=== PATIENT | female | born 1950 | race African-American/Black ===

== ENCOUNTER 2018-10-15 06:07 | Inpatient (IN) | payer OTHER ==
[2018-10-11 20:35] VITALS: BMI 31.8
[2018-10-15] MEDS ORDERED: THROMBIN (BOVINE) 5,000 UNIT VIAL TP ONE ×3 (07:24→15:29)
[2018-10-15] MEDS ORDERED: HEPARIN NA (PORCINE) 5,000 UNITS/ML 1ML VIAL ONE (07:24)
[2018-10-15] MEDS ORDERED: BUPIVACAINE HCL/PF 0.25% (2.5MG/ML) 10 ML VIAL ONE (07:24)
[2018-10-15] MEDS ORDERED: MIDAZOLAM HCL 2 MG/2 ML SINGLE DOSE VIAL ONE (08:17)
[2018-10-15] MEDS ORDERED: PROPOFOL 20 ML ONE ×16 (08:18→16:36)
[2018-10-15] MEDS ORDERED: DESFLURANE GAS 240 ML BOTTLE IH ONE (08:20)
[2018-10-15] MEDS ORDERED: ceFAZolin SODIUM 1 GM VIAL IVPB ONE ×2 (08:30→14:29)
[2018-10-15] MEDS ORDERED: VANCOMYCIN 1,000 MG VIAL (RESTRICTED TO ID ONLY) IVPB ONE ×2 (08:30→08:50)
[2018-10-15] MEDS ORDERED: ROCURONIUM BROMIDE 50 MG/5 ML VIAL ONE ×2 (08:38→10:27)
[2018-10-15] MEDS ORDERED: SUCCINYLCHOLINE CHLORIDE 200 MG/10 ML VIAL ONE (08:39)
[2018-10-15] MEDS ORDERED: fentaNYL CITRATE 250 MCG/5 ML VIAL ONE ×3 (09:06→14:11)
[2018-10-15] MEDS ORDERED: BENZOIN TINCTURE SWABSTICK TP ONE ×2 (09:15→19:20)
[2018-10-15] MEDS ORDERED: ONDANSETRON 4 MG/2 ML VIAL ONE ×2 (10:00→16:14)
[2018-10-15] MEDS ORDERED: DEXAMETHASONE SOD PHOSPHATE 4 MG/1 ML VIAL ONE ×2 (10:00→11:15)
[2018-10-15] MEDS ORDERED: VANCOMYCIN 1,000 MG VIAL (RESTRICTED TO ID ONLY) ONE (10:00)
[2018-10-15] MEDS ORDERED: ceFAZolin SODIUM 1 GM VIAL ONE ×3 (10:00→16:54)
[2018-10-15] MEDS ORDERED: TRANEXAMIC ACID 1000 MG/10 ML VIAL ONE (10:12)
[2018-10-15] MEDS ORDERED: GELATIN, ABSORBABLE 100 EACH SPONGE TP ONE (10:33)
[2018-10-15] MEDS ORDERED: BUPIVACAINE HCL/PF 0.25% (2.5MG/ML) 10 ML VIAL IJ ONE ×2 (11:01→14:31)
[2018-10-15] MEDS ORDERED: BUPIVACAINE LIPOSOME/PF (EXPAREL) 266 MG/20 ML VIAL NR ONE ×3 (11:01→14:31)
[2018-10-15] MEDS ORDERED: CALCIUM CHLORIDE 1 GM/10 ML *DISP.SYRIN ONE ×2 (11:04→15:30)
[2018-10-15] MEDS ORDERED: DEXMEDETOMIDINE HCL 200 MCG/2 ML ML IVPB ONE (11:20)
[2018-10-15] MEDS ORDERED: SODIUM CHLORIDE 0.9% P/F 10 ML VIAL IJ ONE (11:27)
[2018-10-15] MEDS ORDERED: NEOSTIGMINE METHYLSULFATE 0.5 MG/1 ML - 10 ML MDV ONE (11:44)
[2018-10-15] MEDS ORDERED: GLYCOPYRROLATE 0.2 MG/1 ML VIAL ONE (11:44)
[2018-10-15 13:52] LABS: ARTERIAL BLD GAS O2 SATURATION 99.1 % (90-98.9); ARTERIAL BLOOD GAS BASE EXCESS 0.2 meq/l (-2-2); ARTERIAL BLOOD GAS pH 7.41 (7.35-7.45)
[2018-10-15 13:56] LABS: ALLENS TEST POSITIVE
[2018-10-15] MEDS ORDERED: PHENYLEPHRINE HCL 10 MG/1 ML SINGLE DOSE VIAL ONE (14:06)
[2018-10-15] MEDS ORDERED: ONDANSETRON 4 MG/2 ML VIAL IVPUSH PRN ×3 (14:57→19:56)
[2018-10-15] MEDS ORDERED: LACTATED RINGERS SOLUTION 1,000 ML IV SCH ×2 (15:00→20:00)
[2018-10-15 17:11] LABS: BASO % 0.2 % (0-2.0); EOS % 0.1 % (0-4.5); HEMATOCRIT 29.6 % (32.4-45.2); HEMOGLOBIN 10.1 GM/dL (10.7-15.3); LYMPH % 9.7 % (8-40); MCH 30.5 pg (25.7-33.7); MEAN CELL VOLUME 89.6 fl (80-96); MEAN PLT VOLUME 9.4 fl (7.5-11.1); MONO % 2.3 % (3.8-10.2); NEUT % 87.7 % (42.8-82.8); PLATELET COUNT 218 K/MM3 (134-434); RBC 3.31 M/mm3 (3.60-5.2); RDW 17.1 % (11.6-15.6); WHITE BLOOD COUNT 9.3 K/mm3 (4.0-10.0)
--- NOTE | 2018-10-15 19:47 | PN ---
Progress Note (short form) - Note Progress Note: 68F POD #0 s/p: 1. L1, L2, L3, L4, L5, S1 laminectomies 2. T6, T7, T8, T9, T10, T11, T12, L1, L2, L3, L4, L5, S1 osteotomies ( facetectomies) 3. L1-L2, L2-L3, L3-L4 Apstor Dean Osteotomies 4. T6-S1 posterior instrumentation 5. T6-S1 posterolateral arthrodesis 6. Durotomy repair 7. Bone allograft 8. Bone autograft 9. Bone marrow aspiration 10. Complex wound closure (>45cm) -Pain control: NO NSAID's. -DVT PPx: -Mechanical only: JAIDEN's, SCD's. -Chemical: None. -Incentive spirometry. -PT/OT/Rehab, OOB. -WBAT B/L LE. -NPO until flatus. -Monitor drain output. -Bhakta care; d/c when ambulating. -Post-op Ancef x 2 doses. -No bending, lifting, or twisting for 9-12 months. -Care per ICU & medical hospitalist teams. -Will follow. Andre Manjarrez MD (Orthopaedic Surgery).
[2018-10-15] MEDS ORDERED: PROMETHAZINE HCL 25 MG/1 ML VIAL IVPUSH PRN (19:52)
--- NOTE | 2018-10-15 19:53 | OP ---
Operative Note - Note: Operative Date: 10/15/18 Pre-Operative Diagnosis: 1. 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 2. 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 3. L3-L4 spondylolisthesis ( anterolisthesis). 4. Thoracolumbar scoliosis. 5. Thoracolumbar kyphosis. 6. Sagittal vertical malalignment/imbalance. 7. Neurological decline/weakness. 8. Neurogenic bladder. 9. Durotomy Operation: 1. L1, L2, L3, L4, L5, S1 laminectomies. 2. T6, T7, T8, T9, T10, T11 , T12, L1, L2, L3, L4, L5, S1 osteotomies (facetectomies). 3. L1-L2, L2-L3, L3- L4 Pastor Dean Osteotomies. 4. T6-S1 posterior instrumentation. 5. T6-S1 posterolateral arthrodesis. 6. Durotomy repair. 7. Bone allograft. 8. Bone autograft. 9. Bone marrow aspiration. 10. Complex wound closure (>45cm) Post-Operative Diagnosis: Same as Pre-op Surgeon: Andre Manjarrez Truck Hop: Flynn Manjarrez Anesthesiologist/AQUATIC ECOLOGIST: Niurka Cantu Anesthesia: General Estimated Blood Loss (mls): 2,000 Drains & Tubes with Location: 1 x superficial HemoVac Blood Volume Replaced (mls): 1,900 (4U PRBC (350cc) + 500cc cell saver) Fluid Volume Replaced (mls): 7,000 (Crystalloid) Operative Report Dictated: Yes
[2018-10-15] MEDS ORDERED: HYDROmorphone *PCA* 10MG/50ML DISP.SYRIN PCA SCH (20:00)
[2018-10-15] MEDS ORDERED: HYDROmorphone *PCA* 10MG/50ML DISP.SYRIN PCA ONE (20:03)
[2018-10-15] MEDS ORDERED: ACETAMINOPHEN INJECTION 0 ML IVPB ONE (20:24)
[2018-10-15] MEDS: LACTATED RINGERS SOLUTION 1,000 ML IV SCH (20:30)
[2018-10-15] MEDS: HYDROmorphone *PCA* 10MG/50ML DISP.SYRIN PCA SCH (20:40)
[2018-10-15] MEDS: ACETAMINOPHEN 1000 MG/100 ML VIAL (NON FORMULARY) IVPB SCH (20:45)
[2018-10-15] MEDS ORDERED: LORazepam 2 MG/ML SDV VIAL ONE (21:22)
[2018-10-15] MEDS ORDERED: LORazepam 2 MG/ML SDV VIAL IVPUSH ONE (21:42)
--- NOTE | 2018-10-15 23:53 | CONSULT ---
Consult Consult Specialty:: ICU Referred by:: Josseline Reason for Consultation:: Post-op - History of Present Illness Chief Complaint: Post-op History of Present Illness: 68F with history of Right breast Ca, neurogenci bladder, glaucoma, spinal stenosis with neurogenic claudication, scoliosis, lower extremity radiculopathy , is s/p L1, L2, L3, L4, L5, S1 laminectomies, T6, T7, T8, T9, T10, T11, T12, L1, L2, L3, L4, L5, S1 osteotomies (facetectomies), L1-L2, L2-L3, L3-L4 Pastor Dean Osteotomies, T6-S1 posterior instrumentation, T6-S1 posterolateral arthrodesis, Durotomy repair, Bone allograft, Bone autograft, Bone marrow aspiration, and Complex wound closure. Patient tolerated the procedure well and is feeling well. She is still lethargic and tired appearing. She denies nausea, vomiting, fever, chills, chest pain, or shortness of breath. pain is well controlled on Dilaudid ETHICAL HACKER. Patient has 2 liters bloos loss in OR. Replaced with 7 liters of cystalloid and 4 units PRBCs (350ml each) plus 500ml cell saver - History Source History Provided By: Medical Record Limitations to Obtaining History: Other (patient lethargic likely from anesthesia) - Past Medical History Heme/Onc: Yes: Cancer (right breast) Additional Medical History: Neurogenic bladder. spinal stenosis. glaucoma - Alcohol/Substance Use Hx Alcohol Use: Yes (socially) - Smoking History Smoking history: Former smoker Have you smoked in the past 12 months: No If you are a former smoker, when did you quit?: quit 47 years ago Home Medications - Allergies Allergies/Adverse Reactions: Allergies Allergy/AdvReac Type Severity Reaction Status Date / Time No Known Allergies Allergy Verified 10/11/18 20:22 - Home Medications Home Medications: Ambulatory Orders Gabapentin [Neurontin -] 300 mg PO Q12H 10/11/18 Oxycodone HCl/Acetaminophen [Oxycodone-Acetaminophen 10-325] 1 each PO Q12H PRN 10/11/18 Timolol [Betimol] 1 ml OU DAILY 10/11/18 Travoprost [Travatan Z] 1 ml OP DAILY 10/11/18 Family Disease History - Family Disease History Family History: Unable to Obtain (Patient still lethargic post op) Review of Systems Findings/Remarks: Was able to do partial ROS. Patient very sleepy - Review of Systems Constitutional: reports: No Symptoms HENT: reports: No Symptoms Cardiovascular: reports: No Symptoms Respiratory: reports: No Symptoms Gastrointestinal: reports: No Symptoms Genitourinary: reports: No Symptoms Musculoskeletal: reports: Back Pain Physical Exam Vital Signs: Vital Signs Temperature 99.6 F 10/15/18 19:46 Pulse Rate 83 10/15/18 23:15 Respiratory Rate 16 10/15/18 23:15 Blood Pressure 120/78 10/15/18 23:15 O2 Sat by Pulse Oximetry (%) 100 10/15/18 23:15 Constitutional: Yes: Well Nourished, Obese, Other (lethargic) Eyes: Yes: Conjunctiva Clear HENT: Yes: Atraumatic, Normocephalic Neck: Yes: Supple Cardiovascular: Yes: Regular Rate and Rhythm Respiratory: Yes: Regular, CTA Bilaterally. No: Accessory Muscle Use Gastrointestinal: Yes: Soft, Hypoactive Bowel Sounds. No: Tenderness Extremities: Yes: Other (sensation intact in all 4 extremities. complete neurological assessment of all extremities not able to be done as patient is sleepy/lethargic. is able to move all extremities) Edema: Yes Edema: RLE: Trace Wound/Incision: Yes: Other (Dressing along back C/D/I) Neurological: Yes: Lethargy Labs: CBC, BMP 10/15/18 16:30 Assessment/Plan 68F with multi-level lumbar intervertebral disc disorder with bilateral lower extremity radiculopathy and spinal stenosis presents s/p L1, L2, L3, L4, L5, S1 laminectomies, T6, T7, T8, T9, T10, T11, T12, L1, L2, L3, L4, L5, S1 osteotomies (facetectomies), L1-L2, L2-L3, L3-L4 Pastor Dean Osteotomies, T6- S1 posterior instrumentation, T6-S1 posterolateral arthrodesis, Durotomy repair , Bone allograft, Bone autograft, Bone marrow aspiration, and Complex wound closure Problem List: multi-level lumbar intervertebral disc disorder with bilateral lower extremity radiculopathy 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 Monitor in PACU for now trend CBC given 2 liter blood loss transfuse PRN pain control with ETHICAL HACKER bilateral lower extremity non weight bearing lay flat for 72 hours given intra-op durotomy and primary repair hemovac drain to suction on eye drops for glaucoma O2 PRN hold off on PT for now Incentive spirometry No NSAIDs per Dr. Manjarrez perioperative ancef sharp until ambulating NPO until patient has flatus No bending, lifting, or twisting for 9-12 months SCDs for DVT PPx-no chemical PPx ICU care CCTime 45min
[2018-10-16] MEDS ORDERED: ceFAZolin SODIUM 1 GM VIAL ONE ×2 (00:10→09:03)
[2018-10-16] MEDS ORDERED: ceFAZolin 2 GRAM PREMIX BAG IVPB SCH (00:30)
[2018-10-16] MEDS ORDERED: CEFAZOLIN 2 GM/D5W 2 GM/50 ML ML IVPB SCH (00:30)
[2018-10-16] MEDS ORDERED: ACETAMINOPHEN INJECTION 100 ML IVPB ONE ×2 (03:58→11:25)
[2018-10-16] MEDS: ACETAMINOPHEN 1000 MG/100 ML VIAL (NON FORMULARY) IVPB SCH ×3 (04:00→21:57)
[2018-10-16 07:05] LABS: HEMATOCRIT 33.8 % (32.4-45.2); HEMOGLOBIN 11.1 GM/dL (10.7-15.3); MCH 29.2 pg (25.7-33.7); MCHC 32.9 g/dl (32.0-36.0); MEAN CELL VOLUME 88.9 fl (80-96); MEAN PLT VOLUME 9.1 fl (7.5-11.1); PLATELET COUNT 171 K/MM3 (134-434); RDW 17.2 % (11.6-15.6); WHITE BLOOD COUNT 12.3 K/mm3 (4.0-10.0)
--- NOTE | 2018-10-16 08:09 | PN ---
Progress Note (short form) - Note Progress Note: Anesthesia POD#1 S/PT6-S1 Posterior Decompression with Fusion under GA and IV STRAP BUCKLER MACHINE Stable after the surgery and 4 units of PRBC,no N/V. Pain is under control. Awaiting bed in the ICU. A/P Continue the STRAP BUCKLER MACHINE for today. Delfina Freed MD.
[2018-10-16 08:10] LABS: ANION GAP 11 MMOL/L (8-16); BLOOD UREA NITROGEN 20 mg/dL (7-18); CALCIUM 7.7 mg/dL (8.5-10.1); CHLORIDE 111 mmol/L (98-107); CO2 20 mmol/L (21-32); CREATININE 0.8 mg/dL (0.55-1.3); GLUCOSE,RANDOM 124 mg/dL (74-106); MAGNESIUM 1.7 mg/dL (1.8-2.4); PHOSPHOROUS 4.5 mg/dL (2.5-4.9); POTASSIUM 4.8 mmol/L (3.5-5.1); SODIUM 142 mmol/L (136-145)
--- NOTE | 2018-10-16 12:41 | OP ---
DATE OF OPERATION: 10/15/2018 SURGEON: Andre Manjarrez MD SCRIPT WRITER SURGEON: Flynn Manjarrez MD PREOPERATIVE DIAGNOSIS: Degenerative lumbar scoliosis, 48 degrees, with associated segmental instability and spinal stenosis from L1 to S1, and L2-L3 grade 2 spondylolisthesis. POSTOPERATIVE DIAGNOSIS: Degenerative lumbar scoliosis, 48 degrees, with associated segmental instability and spinal stenosis from L1 to S1, and L2-L3 grade 2 spondylolisthesis. OPERATION PERFORMED: 1. Laminectomy with undercutting facetectomy L1 to S1. 2. Pastor-Tyler osteotomies at L1-L2, L2-L3, L3-L4. 3. Incidental durotomy and repair. 4. Transpedicular instrumentation thoracolumbar spine T6 to S1. 5. Posterolateral arthrodesis T6 to S1. 6. Autologous bone graft and allograft. 7. Bone marrow aspirate concentrate. 8. Use of biplane fluoroscopy and intraoperative neuromonitoring. 9. Complex wound closure, 45 cm. ANESTHESIA: General. ANTIBIOTICS GIVEN: Kefzol 2 g and vancomycin 1 g given preoperatively. Kefzol 1 g given at the end of the decompression and laminectomy, and Kefzol 1 g given at the end of instrumentation. ESTIMATED BLOOD LOSS: Approximately 2 L. BLOOD PRODUCTS GIVEN: Including 4 units of blood and 500 mL of CellSaver. FLUIDS: Crystalloid 7 L. Blood pressure was maintained well throughout the procedure and no neuromonitoring abnormalities throughout the procedure. DESCRIPTION OF PROCEDURE: The patient was correctly identified and brought to the operating room. A time-out was called. Imaging was available for intraoperative evaluation. The patient was sat up on the [place] stable. All bony prominences were padded appropriately. The patient was operated on at 10 degrees of head elevation for optic vein blood flow reasons. A midline incision was utilized, extending from T4 to S1. Subperiosteal dissection performed throughout, exposing the spinous processes, laminae, facet joints and the transverse processes of the thoracic spine. 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 The right side was normal. The scoliosis was readily appreciated. A very difficult multilevel laminectomy was performed, with undercutting facetectomy. This necessitated use of Kerrison up-cuts and Lexsell rongeurs of various sizes. We used sharp osteotomes. We performed osteotomies with osteotomes, imploding the bone inwards. The pars interarticularis as well as the inferior facets were removed. The prominent superior facet is resected, thus completing a full superior facetectomy from L1 to S1, both left and right-hand sides. An incidental durotomy was noted at the level of approximately L2-L3. This was repaired with 4-0 Nurolon. This was a watertight seal. Surgicel combined with fibrin glue was laid over. This sealed it completely. Repeated sequential Valsalva maneuvers revealed that this was sealed once the repair had been completed. The dura appeared normal. Although, once it had been decompressed, because of the CSF leakage, it plumped up and filled up reasonably well. At the end of the procedure the dura appeared healthy and normal. No neuromonitoring abnormalities occurred. Once this had been performed, thoracic facetectomies were performed. These were Dale facetectomies at each level from T6 all the way to T12, both left and right-hand sides. These facetectomies enabled entry points for the pedicle screws for the thoracic screws, which all measured 14 x 6 mm. They were inserted using a drill. Each thoracic pedicle was palpated with a ball-tipped feeler and found to be in the confines of healthy bone throughout, and the screws seated with no difficulties or problems. The lumbar spine, where the scoliosis was, proved to be far more difficult. The pedicle screws from L1 to S1 were performed seated using anatomical guidelines and lateral fluoroscopic x-ray. We visualized the pedicles via the vertebral canal to help facilitate accurate screw placement, and this turned out well, as neuromonitoring revealed all screws to be well above 20 milliamps for each screw accordingly. The rods were then contoured to the screw heads, fixed to the screws, tightened with the appropriate cap devices, and tightened finally with a torque device. One crosslink applied. [place] bone grafting of the intertransverse plane extending from T6 right down to the ala of the sacrum was performed. It must be noted that the initial part of the dissection freed all soft tissues off the transverse processes. The area was packed with sponges. At the time of bone grafting, the sponges were removed. Sponge count was correct. The bone was packed into the intertransverse plane appropriately, ensuring that there was an extensive amount of bone graft at the lumbosacral junction. At the end of this, the wound was closed. Prior to closure, it must be noted that the retractors were released every 1/2 hour. The muscle was gently massaged. At the end of the procedure, appropriate fibrillar and devascularized muscle was resected down to normal healthy muscle as routinely performed. Closure was as follows: Erector spinae muscles 1 Vicryl, fascia 1 Vicryl, subcutaneous 1 and 2-0 Vicryl, skin 3-0 Monocryl with Steri-Strips. This completed a 4-layer closure, in keeping with a complex wound closure for greater than 45 cm. OVERALL COMMENTS: This was a full house of spine pathology, namely stenosis, scoliosis, vertebral canal malalignment by anterolisthesis and associated segmental instability. All that was aimed at was achieved well except a very difficult patient and operation. Average in my hands is anything from 4 to 6 hours. This operation took us 10 hours, indicating the difficulty of particularly the decompression and the freeing of the theca. The patient will be nursed in the ICU postoperatively. For drainage, we placed a 1/8th inch Hemovac in the subcutaneous field. MD BLANE Rodriguez/[id number]
[2018-10-16] MEDS: TIMOLOL 0.5% OPHTHALMIC SOL 5 ML BOTTLE OU SCH (15:42)
--- NOTE | 2018-10-16 18:11 | PN ---
Physical Exam: SUBJECTIVE: Patient seen and examined. She is s/p T6- S1 decompression with fusion under general anesthesia. Her pain is well controlled with dilaudid COMMODITY TRADER. She has no passed flatus and remains NPO. OBJECTIVE: Vital Signs Period Temp Pulse Resp BP Sys/Cisneros Pulse Ox Last 24 Hr 97.7 F-99.6 F 74-90 10-27 100-155/50-92 91-100 GENERAL: The patient is awake, alert, and fully oriented, in no acute distress. HEAD: Normal with no signs of trauma. EYES: PERRL, extraocular movements intact, sclera anicteric, conjunctiva clear. ENT: nares patent, oropharynx clear without exudates, moist mucous membranes. NECK: Trachea midline, full range of motion, supple. LUNGS: Breath sounds equal, clear to auscultation bilaterally, no wheezes, no crackles, no accessory muscle use. HEART: Regular rate and rhythm, S1, S2 without murmur, rub or gallop. ABDOMEN: Soft, nontender, nondistended, hyperactive bowel sounds, no guarding EXTREMITIES: 2+ pulses, warm, well-perfused, no edema. SCDs in place. NEUROLOGICAL: Normal speech, PERRL, normal ROM b/l UEs PSYCH: Normal mood, normal affect. SKIN: Warm, dry, normal turgor, no rashes or lesions noted Laboratory Results - last 24 hr 10/16/18 10/16/18 06:35 06:35 WBC 12.3 H RBC 3.80 Hgb 11.1 Hct 33.8 MCV 88.9 MCH 29.2 MCHC 32.9 RDW 17.2 H Plt Count 171 D MPV 9.1 Sodium 142 Potassium 4.8 Chloride 111 H Carbon Dioxide 20 L Anion Gap 11 BUN 20 H Creatinine 0.8 Creat Clearance w eGFR > 60 Random Glucose 124 H Calcium 7.7 L Phosphorus 4.5 Magnesium 1.7 L Active Medications Generic Name Dose Route Start Last Admin Trade Name Freq PRN Reason Stop Dose Admin Acetaminophen 1,000 mg 10/15/18 20:00 10/16/18 11:34 Ofirmev Injection - IVPB 10/17/18 12:01 1,000 mg Q8H LAURA Administration Fentanyl 50 mcg 10/15/18 14:57 Sublimaze Injection - IVPUSH [id number] PRN PAIN-PACU ORDER X 4 DOSES ONLY Hydromorphone HCl 10 mg 10/15/18 21:15 10/15/18 20:40 Dilaudid Analysis Lead - COMMODITY TRADER 10/18/18 19:53 10 mg COMMODITY TRADER LAURA Administration Protocol Lactated Ringer's 1,000 mls @ 100 mls/hr 10/15/18 20:00 10/15/18 20:30 Lactated Ringers Solution IV 500 mls ASDIR LAURA Administration Latanoprost 1 drop 10/16/18 22:00 Xalatan 0.005% Eye Drops - OU HS LAURA Ondansetron HCl 4 mg 10/15/18 19:56 Zofran Injection IVPUSH Q6H PRN NAUSEA AND/OR VOMITING Timolol Maleate 1 drop 10/16/18 10:00 10/16/18 15:42 Timoptic 0.5% OU Not Given DAILY LAURA ASSESSMENT/PLAN: spinal stenosis s/p T6-S1 decompression -continue pain management with dilaudid COMMODITY TRADER -Bed rest x 72hrs -SCDs -ICU care post op -rest of care as per ortho recommendations Visit type - Emergency Visit Emergency Visit: No - New Patient This patient is new to me today: Yes Date on this admission: 10/16/18 - Critical Care Critical Care patient: Yes Total Critical Care Time (in minutes): 30 Critical Care Statement: The care of this patient involved high complexity decision making to prevent further life threatening deterioration of the patient 's condition and/or to evaluate & treat vital organ system(s) failure or risk of failure.
[2018-10-16] MEDS: LACTATED RINGERS SOLUTION 1,000 ML IV SCH (20:00)
[2018-10-16] MEDS ORDERED: PT OWN MED DRAWER 7, Y5N ONE (21:47)
[2018-10-16] MEDS ORDERED: LATANOPROST 0.005% OPHTH SOLN 2.5ML BOTTLE OU SCH (22:00)
[2018-10-16] MEDS: HYDROmorphone *PCA* 10MG/50ML DISP.SYRIN PCA SCH (23:25)
[2018-10-17] MEDS: HYDROmorphone *PCA* 10MG/50ML DISP.SYRIN PCA SCH ×3 (02:23→21:00)
[2018-10-17] MEDS: ACETAMINOPHEN 1000 MG/100 ML VIAL (NON FORMULARY) IVPB SCH (04:00)
[2018-10-17] MEDS ORDERED: PT OWN MED DRAWER 7, Y5N ONE (07:50)
[2018-10-17] MEDS ORDERED: MAGNESIUM SULF 50% (8.12 MEQ/2 ML-1 GM VIAL) IVPB ONE (08:49)
[2018-10-17] MEDS: TIMOLOL 0.5% OPHTHALMIC SOL 5 ML BOTTLE OU SCH (10:08)
[2018-10-17 10:58] LABS: ALBUMIN 1.9 g/dl (3.4-5.0); ALK PHOS 51 U/L (45-117); ANION GAP 7 MMOL/L (8-16); BILIRUBIN,TOTAL 0.3 mg/dL (0.2-1); BLOOD UREA NITROGEN 21 mg/dL (7-18); CALCIUM 7.9 mg/dL (8.5-10.1); CHLORIDE 109 mmol/L (98-107); CO2 25 mmol/L (21-32); CREATININE 0.5 mg/dL (0.55-1.3); GLUCOSE,RANDOM 97 mg/dL (74-106); SGOT/AST 52 U/L (15-37); SGPT/ALT 24 U/L (13-61); SODIUM 142 mmol/L (136-145); TOT PROT 4.4 g/dl (6.4-8.2)
--- NOTE | 2018-10-17 12:59 | PN ---
Physical Exam: SUBJECTIVE: Patient seen and examined in the ICU. pain ctl w/ CUSTOMER SERVICE VOICE. no flatus yet , remains NPO. denies cp, sob, neuro deficits/numbness tingling. OBJECTIVE: Vital Signs Period Temp Pulse Resp BP Sys/Cisneros Pulse Ox Last 24 Hr 98 F-99.5 F 76-96 10-18 106-140/56-74 100-100 GENERAL: AOX3 NAD HEENT: NCAT, extraocular movements intact, sclera anicteric, conjunctiva clear. No ptosis. MMM NECK: Trachea midline, full range of motion, supple. LUNGS: CTAB HEART: RRR, S1, S2 without murmur, rub or gallop. ABDOMEN: Soft, NTND normoactive bowel sounds, no guarding, no rebound, EXTREMITIES: 2+ pulses, warm, well-perfused, no edema. NEUROLOGICAL: Cranial nerves II through XII grossly intact. Normal speech, gait not observed. chronic decreased sensation in L LE PSYCH: Normal mood, normal affect. SKIN: Warm, dry, normal turgor, no rashes or lesions noted Laboratory Results - last 24 hr 10/17/18 09:15 Sodium 142 Potassium 4.0 Chloride 109 H Carbon Dioxide 25 Anion Gap 7 L BUN 21 H Creatinine 0.5 L Creat Clearance w eGFR > 60 Random Glucose 97 Calcium 7.9 L Total Bilirubin 0.3 AST 52 H ALT 24 Alkaline Phosphatase 51 Total Protein 4.4 L Albumin 1.9 L Active Medications Generic Name Dose Route Start Last Admin Trade Name Freq PRN Reason Stop Dose Admin Fentanyl 50 mcg 10/15/18 14:57 Sublimaze Injection - IVPUSH [id number] PRN PAIN-PACU ORDER X 4 DOSES ONLY Hydromorphone HCl 10 mg 10/15/18 21:15 10/17/18 02:23 Dilaudid Grader Marker - CUSTOMER SERVICE VOICE 10/18/18 19:53 0.5 mg CUSTOMER SERVICE VOICE LAURA Administration Protocol Lactated Ringer's 1,000 mls @ 100 mls/hr 10/15/18 20:00 10/16/18 20:00 Lactated Ringers Solution IV 100 mls/hr ASDIR LAURA Administration Ondansetron HCl 4 mg 10/15/18 19:56 Zofran Injection IVPUSH Q6H PRN NAUSEA AND/OR VOMITING ASSESSMENT/PLAN: 68F PMH Right breast Ca, neurogenic bladder, glaucoma, scoliosis, with multi- level lumbar intervertebral disc disorder with bilateral lower extremity radiculopathy and spinal stenosis presents POD2 s/p L1, L2, L3, L4, L5, S1 laminectomies, T6, T7, T8, T9, T10, T11, T12, L1, L2, L3, L4, L5, S1 osteotomies (facetectomies), L1-L2, L2-L3, L3-L4 Pastor Dean Osteotomies, T6- S1 posterior instrumentation, T6-S1 posterolateral arthrodesis, Durotomy repair , Bone allograft, Bone autograft, Bone marrow aspiration, and Complex wound closure Problem List: multi-level lumbar intervertebral disc disorder with bilateral lower extremity radiculopathy 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 has chronic decreased sensation in L LE bilateral lower extremity non weight bearing lay flat for 72 hours given intra-op durotomy and primary repair hemovac drain to suction on home meds eye drops for glaucoma Monitor drain output. s/p Post-op Ancef x 2 doses. Cardiac/pulm/heme/renal/GI maintain MAP >65 cardiac monitoring monitor H/H transfuse PRN pain control with CUSTOMER SERVICE VOICE O2 PRN hold off on PT for now Incentive spirometry No NSAIDs per Dr. Josseline sharp until ambulating NPO until patient has flatus zofran for nausea No bending, lifting, or twisting for 9-12 months FEN LR 100cc replete prn NPO until flatus ppx SCDs for DVT PPx- no chemical PPx Dispo ICU monitoring POD 2 Visit type - Emergency Visit Emergency Visit: Yes ED Registration Date: 10/15/18 Care time: The patient presented to the Emergency Department on the above date and was hospitalized for further evaluation of their emergent condition. - New Patient This patient is new to me today: Yes Date on this admission: 10/17/18 - Critical Care Critical Care patient: Yes Total Critical Care Time (in minutes): 36 Critical Care Statement: The care of this patient involved high complexity decision making to prevent further life threatening deterioration of the patient 's condition and/or to evaluate & treat vital organ system(s) failure or risk of failure.
--- NOTE | 2018-10-17 13:21 | PN ---
Teaching Attending Note Name of Resident: Gian Cabrera ATTENDING PHYSICIAN STATEMENT I saw and evaluated the patient. I reviewed the resident's note and discussed the case with the resident. I agree with the resident's findings and plan as documented. SUBJECTIVE: Pt seen and examined in the ICU. Pain controlled on ECG TECHNICIAN pump. no flatus yet. No nausea or vomiting. No shortness of breath or chest pain. OBJECTIVE: Vital Signs Period Temp Pulse Resp BP Sys/Cisneros Pulse Ox Last 24 Hr 98 F-99.5 F 76-96 09-13 106-140/56-74 100-100 Intake & Output 10/14/18 10/15/18 10/16/18 10/17/18 23:59 23:59 23:59 23:59 Intake Total 9400 2300 100 Output Total 2330 1005 Balance 7070 1295 100 Weight 89.358 kg Gen: NAD at rest Heart: RRR Lung: decreased breath sounds at the bases Abd: soft, nontender Ext: no edema Drain with serosanguinous fluid CBC, BMP 10/16/18 06:35 10/17/18 09:15 Active Medications Fentanyl (Sublimaze Injection -) 50 mcg IVPUSH [id number] PRN PRN Reason: PAIN-PACU ORDER X 4 DOSES ONLY Hydromorphone HCl (Dilaudid Paring Machine Operator -) 10 mg ECG TECHNICIAN ECG TECHNICIAN LAURA; Protocol Stop: 10/18/18 19:53 Last Admin: 10/17/18 02:23 Dose: 0.5 mg Lactated Ringer's (Lactated Ringers Solution) 1,000 mls @ 100 mls/hr IV ASDIR LAURA Last Admin: 10/16/18 20:00 Dose: 100 mls/hr Ondansetron HCl (Zofran Injection) 4 mg IVPUSH Q6H PRN PRN Reason: NAUSEA AND/OR VOMITING ASSESSMENT AND PLAN: Severe Multi-level Lumbar Spinal Stenosis Throracolumbar Scoliosis/Kyphosis s/p L1-S1 Laminectomies/T6-S1 Osteotomies/Facetectomies/Posterior Instrumentation/Posterolateral Arthrodesis/Durotomy Repair/Complex Wound Closure h/o Breast Ca - pain control - incentive spirometry - flat positioning x 72 hrs - PO when flatus - d/c sharp when OOB - bowel regimen - DVT prophylaxis
--- NOTE | 2018-10-17 16:06 | PN ---
Progress Note (short form) - Note Progress Note: ANESTHESIOLOGY POST-OP CHECK 68F s/p thoraco-lumbar decompression and fusion POd #2. Pain 6/10 and tolerable. On dilaudid METAL MOLDER, not on PO diet. Denies N/V. Vital Signs Temperature 98.6 F 10/17/18 14:00 Pulse Rate 81 10/17/18 14:00 Respiratory Rate 20 10/17/18 14:00 Blood Pressure 154/72 10/17/18 14:00 O2 Sat by Pulse Oximetry (%) 100 10/17/18 11:31 Active Medications Fentanyl (Sublimaze Injection -) 50 mcg IVPUSH [id number] PRN PRN Reason: PAIN-PACU ORDER X 4 DOSES ONLY Hydromorphone HCl (Dilaudid Strategies Analyst -) 10 mg METAL MOLDER METAL MOLDER [facility]; Protocol Stop: 10/18/18 19:53 Last Admin: 10/17/18 02:23 Dose: 0.5 mg Lactated Ringer's (Lactated Ringers Solution) 1,000 mls @ 100 mls/hr IV ASDIR [facility] Last Admin: 10/16/18 20:00 Dose: 100 mls/hr Ondansetron HCl (Zofran Injection) 4 mg IVPUSH Q6H PRN PRN Reason: NAUSEA AND/OR VOMITING Gen: Awake, alert, NAD Continue METAL MOLDER. Continue management as per primary team
--- NOTE | 2018-10-17 18:48 | PN ---
Physical Exam: SUBJECTIVE: Patient seen and examined. Patient states she is feeling well, pain well-controlled with FUDGE CANDY MAKER. She has not yet passed flatus or moved her bowels. NPO OBJECTIVE: Vital Signs Period Temp Pulse Resp BP Sys/Cisneros Pulse Ox Last 24 Hr 98 F-99.5 F 76-96 10-20 106-156/58-74 100-100 GENERAL: The patient is awake, alert, and fully oriented, in no acute distress. HEAD: Normal with no signs of trauma. EYES: PERRL, extraocular movements intact, sclera anicteric, conjunctiva clear. No ptosis. ENT: Ears normal, nares patent, oropharynx clear without exudates, moist mucous membranes. NECK: Trachea midline, full range of motion, supple. LUNGS: Breath sounds equal, clear to auscultation bilaterally, no wheezes, no crackles, no accessory muscle use. HEART: Regular rate and rhythm, S1, S2 without murmur, rub or gallop. ABDOMEN: Obese, soft, nontender, nondistended, normoactive bowel sounds, no guarding, no rebound, no hepatosplenomegaly, no masses. EXTREMITIES: 2+ pulses, warm, well-perfused, no edema. MS: Dressing CDI to thoracic spine, no strike through or surrounding edema. NEUROLOGICAL: No facial droop. Normal speech, gait not observed. PSYCH: Normal mood, normal affect. SKIN: Warm, dry, normal turgor, no rashes or lesions noted Laboratory Results - last 24 hr 10/17/18 09:15 Sodium 142 Potassium 4.0 Chloride 109 H Carbon Dioxide 25 Anion Gap 7 L BUN 21 H Creatinine 0.5 L Creat Clearance w eGFR > 60 Random Glucose 97 Calcium 7.9 L Total Bilirubin 0.3 AST 52 H ALT 24 Alkaline Phosphatase 51 Total Protein 4.4 L Albumin 1.9 L Active Medications Generic Name Dose Route Start Last Admin Trade Name Freq PRN Reason Stop Dose Admin Fentanyl 50 mcg 10/15/18 14:57 Sublimaze Injection - IVPUSH [id number] PRN PAIN-PACU ORDER X 4 DOSES ONLY Hydromorphone HCl 10 mg 10/15/18 21:15 10/17/18 02:23 Dilaudid Chemist Water Purification - FUDGE CANDY MAKER 10/18/18 19:53 0.5 mg FUDGE CANDY MAKER LAURA Administration Protocol Lactated Ringer's 1,000 mls @ 100 mls/hr 10/15/18 20:00 10/16/18 20:00 Lactated Ringers Solution IV 100 mls/hr ASDIR LAURA Administration Ondansetron HCl 4 mg 10/15/18 19:56 Zofran Injection IVPUSH Q6H PRN NAUSEA AND/OR VOMITING ASSESSMENT/PLAN: 68 year old female with a PMH significant for Right breast Ca, neurogenic bladder, glaucoma, scoliosis, with multi-level lumbar intervertebral disc disorder with bilateral lower extremity radiculopathy and spinal stenosis. Patient is POD #2 s/p L1, L2, L3, L4, L5, S1 laminectomies, T6, T7, T8, T9, T10 , T11, T12, L1, L2, L3, L4, L5, S1 osteotomies (facetectomies), L1-L2, L2-L3, L3 -L4 Pastor Dean Osteotomies, T6-S1 posterior instrumentation, T6-S1 posterolateral arthrodesis, Durotomy repair, Bone allograft, Bone autograft, Bone marrow aspiration, and Complex wound closure Thoraco-lumbar decompression and fusion POD #2 - s/p Post-op Ancef x 2 doses - Dilaudid FUDGE CANDY MAKER - Monitor drain output - Incentive spirometry - Bed in flat position x 72 hours - D/c sharp when OOB - PO when flatus passed - Bowel regimen - No bending, lifting, or twisting for 9-12 months FEN - LR @ 100cc/hr - Replete prn - NPO until flatus Prophylaxis DVT: SCDs Dispo ICU monitoring POD 2 Visit type - Emergency Visit Emergency Visit: No - New Patient This patient is new to me today: Yes Date on this admission: 10/17/18 - Critical Care Critical Care patient: Yes Total Critical Care Time (in minutes): 25
[2018-10-17] MEDS ORDERED: TIMOLOL 0.5% OPHTHALMIC SOL 5 ML BOTTLE OU SCH (22:00)
[2018-10-18] MEDS: HYDROmorphone *PCA* 10MG/50ML DISP.SYRIN PCA SCH ×2 (00:59→21:15)
[2018-10-18] MEDS: LACTATED RINGERS SOLUTION 1,000 ML IV SCH ×2 (01:01→20:00)
[2018-10-18 06:07] LABS: BASO % 0.2 % (0-2.0); EOS % 0.4 % (0-4.5); HEMATOCRIT 27.1 % (32.4-45.2); LYMPH % 6.7 % (8-40); MCH 29.7 pg (25.7-33.7); MCHC 33.2 g/dl (32.0-36.0); MEAN CELL VOLUME 89.7 fl (80-96); MEAN PLT VOLUME 8.6 fl (7.5-11.1); MONO % 5.9 % (3.8-10.2); NEUT % 86.8 % (42.8-82.8); PLATELET COUNT 123 K/MM3 (134-434); RBC 3.02 M/mm3 (3.60-5.2); RDW 16.9 % (11.6-15.6); WHITE BLOOD COUNT 9.8 K/mm3 (4.0-10.0)
[2018-10-18 06:37] LABS: ALBUMIN 1.8 g/dl (3.4-5.0); ALK PHOS 64 U/L (45-117); ANION GAP 8 MMOL/L (8-16); BILIRUBIN,TOTAL 0.5 mg/dL (0.2-1); BLOOD UREA NITROGEN 10 mg/dL (7-18); CALCIUM 7.7 mg/dL (8.5-10.1); CHLORIDE 104 mmol/L (98-107); CO2 26 mmol/L (21-32); CREATININE 0.4 mg/dL (0.55-1.3); GLUCOSE,RANDOM 78 mg/dL (74-106); MAGNESIUM 1.9 mg/dL (1.8-2.4); PHOSPHOROUS 2.1 mg/dL (2.5-4.9); POTASSIUM 3.5 mmol/L (3.5-5.1); SGOT/AST 45 U/L (15-37); SGPT/ALT 25 U/L (13-61); SODIUM 139 mmol/L (136-145); TOT PROT 4.6 g/dl (6.4-8.2)
[2018-10-18] MEDS ORDERED: POTASSIUM PHOSPHATE 15 MM in SODIUM CHLORIDE 250 ML IVPB ONE (07:52)
[2018-10-18] MEDS ORDERED: POTASSIUM PHOSPHATE 20 MM in SODIUM CHLORIDE 250 ML IVPB ONE (09:00)
--- NOTE | 2018-10-18 10:00 | PN ---
Progress Note (short form) - Note Progress Note: Anesthesia/Pain Pt seen and examined S:Alert and awake comfortable O: Vital Signs Temperature 98 F 10/18/18 07:00 Pulse Rate 87 10/18/18 07:00 Respiratory Rate 12 10/18/18 07:00 Blood Pressure 149/73 10/18/18 07:00 O2 Sat by Pulse Oximetry (%) 100 10/17/18 21:00 CBC, BMP 10/18/18 05:30 10/18/18 05:30 a/p:s/p t6-s1 posterior decompression with fusion doing well post op Uses TURBINE SUBASSEMBLER continue TURBINE SUBASSEMBLER Continue current care Jovan Cedeno MD
--- NOTE | 2018-10-18 10:45 | PN ---
Teaching Attending Note Name of Resident: Gian Cabrera ATTENDING PHYSICIAN STATEMENT I saw and evaluated the patient. I reviewed the resident's note and discussed the case with the resident. I agree with the resident's findings and plan as documented. SUBJECTIVE: Pt seen and examined in the ICU. Pain controlled. No flatus. Using incentive spirometer. No fevers or chills. No shortness of breath or chest pain. OBJECTIVE: Vital Signs Period Temp Pulse Resp BP Sys/Cisneros Pulse Ox Last 24 Hr 98 F-99.2 F 76-96 - 118-156/55-74 100-100 Intake & Output 10/15/18 10/16/18 10/17/18 10/18/18 23:59 23:59 23:59 23:59 Intake Total 9400 2300 1700 Output Total 2330 1085 1110 400 Balance 7070 1215 590 -400 Weight 89.358 kg Gen: NAD at rest Heart: RRR Lung: decreased breath sounds at the bases Abd: soft, nontender Ext: no edema Drain with serosanguinous fluid CBC, BMP 10/18/18 05:30 10/18/18 05:30 Active Medications Fentanyl (Sublimaze Injection -) 50 mcg IVPUSH [id number] PRN PRN Reason: PAIN-PACU ORDER X 4 DOSES ONLY Hydromorphone HCl (Dilaudid Electric Trucker -) 10 mg SNACK BAR CASHIER SNACK BAR CASHIER LAURA; Protocol Stop: 10/18/18 19:53 Last Admin: 10/18/18 00:59 Dose: 10 mg Lactated Ringer's (Lactated Ringers Solution) 1,000 mls @ 100 mls/hr IV ASDIR LAURA Last Admin: 10/18/18 01:01 Dose: 100 mls/hr Potassium Phosphate 20 mm/ (Sodium Chloride) 256.6667 mls @ 64.167 mls/hr IVPB ONCE ONE Stop: 10/18/18 12:59 Last Admin: 10/18/18 09:51 Dose: 64.167 mls/hr Ondansetron HCl (Zofran Injection) 4 mg IVPUSH Q6H PRN PRN Reason: NAUSEA AND/OR VOMITING ASSESSMENT AND PLAN: Severe Multi-level Lumbar Spinal Stenosis Throracolumbar Scoliosis/Kyphosis s/p L1-S1 Laminectomies/T6-S1 Osteotomies/Facetectomies/Posterior Instrumentation/Posterolateral Arthrodesis/Durotomy Repair/Complex Wound Closure h/o Breast Ca - pain control - incentive spirometry - flat positioning x 72 hrs - PO when flatus - d/c sharp when OOB - bowel regimen - DVT prophylaxis
--- NOTE | 2018-10-18 13:11 | PN ---
Progress Note (short form) - Note Progress Note: 68F POD #2 s/p: 1. L1, L2, L3, L4, L5, S1 laminectomies 2. T6, T7, T8, T9, T10, T11, T12, L1, L2, L3, L4, L5, S1 osteotomies ( facetectomies) 3. L1-L2, L2-L3, L3-L4 Pastor Dean Osteotomies 4. T6-S1 posterior instrumentation 5. T6-S1 posterolateral arthrodesis 6. Durotomy repair 7. Bone allograft 8. Bone autograft 9. Bone marrow aspiration 10. Complex wound closure (>45cm) Pain well controlled. No acute events overnight. Pt. denies any positional or persistent headaches, chest pain, shortness of breath, nausea, vomiting, chills, sweats. (+) Bhakta catheter; (-) Flatus; (-) BM. NPO. All labs, vitals, I&O reviewed. PE: AAO x 3, NAD. L-Spine: Dressing C/D/I. Drain intact & in place. Output: 60cc/shift. B/L LE Motor Exam at Baseline: All muscles supplying hips, knees, ankles, hindfeet, midfeet, and forefeet intact & at least 3/5. (+) Functional weakness secondary to surgery, back pain, and post-operative deconditioning. RLE Sensory Exam at Baseline: L2-L3 2/2; L4-S1 1/2. LLE Sensory Exam at Baseline: L2-S1 2/2. B/L LE Vascular: Normal arterial supply & venous drainage. 68F POD #2 s/p: 1. L1, L2, L3, L4, L5, S1 laminectomies 2. T6, T7, T8, T9, T10, T11, T12, L1, L2, L3, L4, L5, S1 osteotomies ( facetectomies) 3. L1-L2, L2-L3, L3-L4 Pastor Dean Osteotomies 4. T6-S1 posterior instrumentation 5. T6-S1 posterolateral arthrodesis 6. Durotomy repair 7. Bone allograft 8. Bone autograft 9. Bone marrow aspiration 10. Complex wound closure (>45cm) -Pain control: NO NSAID's. -DVT PPx: -Mechanical only: JAIDEN's, SCD's. -Chemical: None. -Incentive spirometry. -NPO until flatus. -HEAD OF BED FLAT. -Monitor drain output. -Bhakta care; d/c when ambulating. -No bending, lifting, or twisting for 9-12 months. -Care per ICU & medical hospitalist teams. -Will follow. Flynn Manjarrez MD (Orthopaedic Surgery).
--- NOTE | 2018-10-18 13:16 | PN ---
Progress Note (short form) - Note Progress Note: 68F POD #3 s/p: 1. L1, L2, L3, L4, L5, S1 laminectomies 2. T6, T7, T8, T9, T10, T11, T12, L1, L2, L3, L4, L5, S1 osteotomies ( facetectomies) 3. L1-L2, L2-L3, L3-L4 Pastor Dean Osteotomies 4. T6-S1 posterior instrumentation 5. T6-S1 posterolateral arthrodesis 6. Durotomy repair 7. Bone allograft 8. Bone autograft 9. Bone marrow aspiration 10. Complex wound closure (>45cm) Again, pain well controlled. No acute events overnight. Pt. denies any positional or persistent headaches, chest pain, shortness of breath, nausea, vomiting, chills, sweats. (+) Bhakta catheter; (-) Flatus; (-) BM. NPO. All labs, vitals, I&O reviewed. PE: AAO x 3, NAD. L-Spine: Dressing C/D/I. Drain intact & in place. Output: 60cc/shift. B/L LE Motor Exam at Baseline: All muscles supplying hips, knees, ankles, hindfeet, midfeet, and forefeet intact & at least 3/5. (+) Functional weakness secondary to surgery, back pain, and post-operative deconditioning. RLE Sensory Exam at Baseline: L2-L3 2/2; L4-S1 1/2. LLE Sensory Exam at Baseline: L2-S1 2/2. B/L LE Vascular: Normal arterial supply & venous drainage. 68F POD #3 s/p: 1. L1, L2, L3, L4, L5, S1 laminectomies 2. T6, T7, T8, T9, T10, T11, T12, L1, L2, L3, L4, L5, S1 osteotomies ( facetectomies) 3. L1-L2, L2-L3, L3-L4 Pastor Dean Osteotomies 4. T6-S1 posterior instrumentation 5. T6-S1 posterolateral arthrodesis 6. Durotomy repair 7. Bone allograft 8. Bone autograft 9. Bone marrow aspiration 10. Complex wound closure (>45cm) -Pain control: NO NSAID's. -DVT PPx: -Mechanical only: JAIDEN's, SCD's. -Chemical: None. -Incentive spirometry. -OK to elevate head of bed at least 45 degrees so long as patient denies positional headaches. Progress to out of bed to chair. -Clear liquid diet; advance as tolerated once (+) flatus. -PT/OT/Rehab, OOB. -WBAT B/L LE. -Monitor drain output. -Bhakta care; d/c when ambulating. -No bending, lifting, or twisting for 9-12 months. -Care per ICU & medical hospitalist teams. -Will follow. Flynn Manjarrez MD (Orthopaedic Surgery).
--- NOTE | 2018-10-18 13:39 | PN ---
Physical Exam: SUBJECTIVE: Patient seen and examined. She reports pain is well-controlled with FARMER CASH GRAIN. Still no flatus or BM. Patient can have HOB elevated by 8 PM this evening. OBJECTIVE: Vital Signs Period Temp Pulse Resp BP Sys/Cisneros Pulse Ox Last 24 Hr 98 F-99.2 F 81-96 11-21 118-156/55-120 100-100 GENERAL: The patient is awake, alert, and fully oriented, in no acute distress. HEAD: Normal with no signs of trauma. EYES: PERRL, extraocular movements intact, sclera anicteric, conjunctiva clear. No ptosis. ENT: Ears normal, nares patent, oropharynx clear without exudates, moist mucous membranes. NECK: Trachea midline, full range of motion, supple. LUNGS: Breath sounds equal, clear to auscultation bilaterally, no wheezes, no crackles, no accessory muscle use. HEART: Regular rate and rhythm, S1, S2 without murmur, rub or gallop. ABDOMEN: Obese, soft, nontender, nondistended, normoactive bowel sounds, no guarding, no rebound, no hepatosplenomegaly, no masses. EXTREMITIES: 2+ pulses, warm, well-perfused, no edema. MS: Dressing CDI to thoracic spine, no strike through or surrounding edema, drain with serosanguinous drainage NEUROLOGICAL: No facial droop. Normal speech, gait not observed. PSYCH: Normal mood, normal affect. SKIN: Warm, dry, normal turgor, no rashes or lesions noted Laboratory Results - last 24 hr 10/18/18 10/18/18 05:30 05:30 WBC 9.8 RBC 3.02 L Hgb 9.0 L Hct 27.1 L D MCV 89.7 MCH 29.7 MCHC 33.2 RDW 16.9 H Plt Count 123 L D MPV 8.6 Absolute Neuts (auto) 8.5 H Neutrophils % 86.8 H Lymphocytes % 6.7 L D Monocytes % 5.9 D Eosinophils % 0.4 D Basophils % 0.2 Nucleated RBC % 0 Sodium 139 Potassium 3.5 Chloride 104 Carbon Dioxide 26 Anion Gap 8 BUN 10 Creatinine 0.4 L Creat Clearance w eGFR > 60 Random Glucose 78 Calcium 7.7 L Phosphorus 2.1 L Magnesium 1.9 Total Bilirubin 0.5 AST 45 H ALT 25 Alkaline Phosphatase 64 Total Protein 4.6 L Albumin 1.8 L Active Medications Generic Name Dose Route Start Last Admin Trade Name Freq PRN Reason Stop Dose Admin Fentanyl 50 mcg 10/15/18 14:57 Sublimaze Injection - IVPUSH [id number] PRN PAIN-PACU ORDER X 4 DOSES ONLY Hydromorphone HCl 10 mg 10/15/18 21:15 10/18/18 00:59 Dilaudid Cash Management Clerk - FARMER CASH GRAIN 10/18/18 19:53 10 mg FARMER CASH GRAIN LAURA Administration Protocol Lactated Ringer's 1,000 mls @ 100 mls/hr 10/15/18 20:00 10/18/18 01:01 Lactated Ringers Solution IV 100 mls/hr ASDIR LAURA Administration Ondansetron HCl 4 mg 10/15/18 19:56 Zofran Injection IVPUSH Q6H PRN NAUSEA AND/OR VOMITING ASSESSMENT/PLAN: 68 year old female with a PMH significant for Right breast Ca, neurogenic bladder, glaucoma, scoliosis, with multi-level lumbar intervertebral disc disorder with bilateral lower extremity radiculopathy and spinal stenosis. Patient is POD #2 s/p L1, L2, L3, L4, L5, S1 laminectomies, T6, T7, T8, T9, T10 , T11, T12, L1, L2, L3, L4, L5, S1 osteotomies (facetectomies), L1-L2, L2-L3, L3 -L4 Pastor Dean Osteotomies, T6-S1 posterior instrumentation, T6-S1 posterolateral arthrodesis, Durotomy repair, Bone allograft, Bone autograft, Bone marrow aspiration, and Complex wound closure Thoraco-lumbar decompression and fusion POD #3 - s/p Post-op Ancef x 2 doses - Dilaudid FARMER CASH GRAIN - Monitor drain output - Incentive spirometry - Elevate HOB at least 45 degrees, monitor for positional headaches, progress to out of bed to chair. - Bhakta care; d/c when ambulating - Bowel regimen - PT/OT/Rehab, OOB - WBAT B/L LE - No bending, lifting, or twisting for 9-12 months FEN - LR @ 100cc/hr - Replete prn - Clear liquid diet; advance as tolerated once flatus Prophylaxis DVT: SCDs Dispo ICU monitoring POD 2 Visit type - Emergency Visit Emergency Visit: No - New Patient This patient is new to me today: No - Critical Care Critical Care patient: Yes Total Critical Care Time (in minutes): 25
[2018-10-18] MEDS ORDERED: DOCUSATE SODIUM 100 MG CAPSULE (FP) PO PRN (14:35)
--- NOTE | 2018-10-18 14:36 | PN ---
Physical Exam: SUBJECTIVE: Patient seen and examined in the ICU. pain ctl w/ WASHTUB WORKER HELPER. no flatus yet , remains NPO. denies cp, sob, neuro deficits/numbness tingling. POD3 OBJECTIVE: Vital Signs Period Temp Pulse Resp BP Sys/Cisneros Pulse Ox Last 24 Hr 98 F-99.2 F 81-96 11-21 118-156/55-120 100-100 GENERAL: AOX3 NAD HEENT: NCAT, extraocular movements intact, sclera anicteric, conjunctiva clear. No ptosis. MMM NECK: Trachea midline, full range of motion, supple. LUNGS: CTAB HEART: RRR, S1, S2 without murmur, rub or gallop. ABDOMEN: Soft, NTND normoactive bowel sounds, no guarding, no rebound, EXTREMITIES: 2+ pulses, warm, well-perfused, no edema. NEUROLOGICAL: Cranial nerves II through XII grossly intact. Normal speech, gait not observed. chronic decreased sensation in L LE PSYCH: Normal mood, normal affect. SKIN: Warm, dry, normal turgor, no rashes or lesions noted Laboratory Results - last 24 hr 10/15/18 10/18/18 10/18/18 06:41 05:30 05:30 WBC 9.8 RBC 3.02 L Hgb 9.0 L Hct 27.1 L D MCV 89.7 MCH 29.7 MCHC 33.2 RDW 16.9 H Plt Count 123 L D MPV 8.6 Absolute Neuts (auto) 8.5 H Neutrophils % 86.8 H Lymphocytes % 6.7 L D Monocytes % 5.9 D Eosinophils % 0.4 D Basophils % 0.2 Nucleated RBC % 0 Sodium 139 Potassium 3.5 Chloride 104 Carbon Dioxide 26 Anion Gap 8 BUN 10 Creatinine 0.4 L Creat Clearance w eGFR > 60 Random Glucose 78 Calcium 7.7 L Phosphorus 2.1 L Magnesium 1.9 Total Bilirubin 0.5 AST 45 H ALT 25 Alkaline Phosphatase 64 Total Protein 4.6 L Albumin 1.8 L Blood Type B POSITIVE Antibody Screen Negative Crossmatch See Detail Active Medications Generic Name Dose Route Start Last Admin Trade Name Freq PRN Reason Stop Dose Admin Fentanyl 50 mcg 10/15/18 14:57 Sublimaze Injection - IVPUSH [id number] PRN PAIN-PACU ORDER X 4 DOSES ONLY Hydromorphone HCl 10 mg 10/15/18 21:15 10/18/18 00:59 Dilaudid Pallet Assembler - WASHTUB WORKER HELPER 10/18/18 19:53 10 mg WASHTUB WORKER HELPER LAURA Administration Protocol Lactated Ringer's 1,000 mls @ 100 mls/hr 10/15/18 20:00 10/18/18 01:01 Lactated Ringers Solution IV 100 mls/hr ASDIR LAURA Administration Ondansetron HCl 4 mg 10/15/18 19:56 Zofran Injection IVPUSH Q6H PRN NAUSEA AND/OR VOMITING ASSESSMENT/PLAN: 68F PMH Right breast Ca, neurogenic bladder, glaucoma, scoliosis, with multi- level lumbar intervertebral disc disorder with bilateral lower extremity radiculopathy and spinal stenosis presents POD2 s/p L1, L2, L3, L4, L5, S1 laminectomies, T6, T7, T8, T9, T10, T11, T12, L1, L2, L3, L4, L5, S1 osteotomies (facetectomies), L1-L2, L2-L3, L3-L4 Pastor Daen Osteotomies, T6- S1 posterior instrumentation, T6-S1 posterolateral arthrodesis, Durotomy repair , Bone allograft, Bone autograft, Bone marrow aspiration, and Complex wound closure Problem List: multi-level lumbar intervertebral disc disorder with bilateral lower extremity radiculopathy 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 has chronic decreased sensation in L LE bilateral lower extremity non weight bearing -OK to elevate head of bed at least 45 degrees so long as patient denies positional headaches. Progress to out of bed to chair. hemovac drain to suction on home meds eye drops for glaucoma Monitor drain output. s/p Post-op Ancef x 2 doses. Cardiac/pulm/heme/renal/GI maintain MAP >65 cardiac monitoring monitor H/H transfuse PRN pain control with WASHTUB WORKER HELPER O2 PRN hold off on PT for now Incentive spirometry No NSAIDs per Dr. Josseline sharp until ambulating Clear liquid diet; advance as tolerated once (+) flatus. zofran for nausea No bending, lifting, or twisting for 9-12 months FEN LR 100cc replete prn Clear liquid diet; advance as tolerated once (+) flatus. ppx SCDs for DVT PPx- no chemical PPx Dispo ICU monitoring POD 3 likely transfer dave Visit type - Emergency Visit Emergency Visit: Yes ED Registration Date: 10/15/18 Care time: The patient presented to the Emergency Department on the above date and was hospitalized for further evaluation of their emergent condition. - New Patient This patient is new to me today: Yes Date on this admission: 10/18/18 - Critical Care Critical Care patient: Yes Total Critical Care Time (in minutes): 38 Critical Care Statement: The care of this patient involved high complexity decision making to prevent further life threatening deterioration of the patient 's condition and/or to evaluate & treat vital organ system(s) failure or risk of failure.
[2018-10-18] MEDS: DOCUSATE SODIUM 100 MG CAPSULE (FP) PO SCH (21:32)
[2018-10-18] MEDS ORDERED: HYDROmorphone *PCA* 10MG/50ML DISP.SYRIN PCA SCH (22:00)
[2018-10-19 06:09] LABS: BASO % 0.3 % (0-2.0); EOS % 1.5 % (0-4.5); HEMATOCRIT 26.5 % (32.4-45.2); HEMOGLOBIN 8.8 GM/dL (10.7-15.3); LYMPH % 10.9 % (8-40); MCH 29.9 pg (25.7-33.7); MCHC 33.1 g/dl (32.0-36.0); MEAN CELL VOLUME 90.2 fl (80-96); MEAN PLT VOLUME 8.4 fl (7.5-11.1); MONO % 7.8 % (3.8-10.2); NEUT % 79.5 % (42.8-82.8); PLATELET COUNT 153 K/MM3 (134-434); RBC 2.93 M/mm3 (3.60-5.2); RDW 16.7 % (11.6-15.6); WHITE BLOOD COUNT 7.9 K/mm3 (4.0-10.0)
[2018-10-19 06:36] LABS: ALBUMIN 1.8 g/dl (3.4-5.0); ALK PHOS 61 U/L (45-117); ANION GAP 6 MMOL/L (8-16); BILIRUBIN,TOTAL 0.4 mg/dL (0.2-1); BLOOD UREA NITROGEN 10 mg/dL (7-18); CALCIUM 7.7 mg/dL (8.5-10.1); CHLORIDE 103 mmol/L (98-107); CO2 29 mmol/L (21-32); CREATININE 0.4 mg/dL (0.55-1.3); GLUCOSE,RANDOM 88 mg/dL (74-106); MAGNESIUM 2.2 mg/dL (1.8-2.4); PHOSPHOROUS 2.4 mg/dL (2.5-4.9); POTASSIUM 3.5 mmol/L (3.5-5.1); SGOT/AST 43 U/L (15-37); SGPT/ALT 30 U/L (13-61); SODIUM 139 mmol/L (136-145); TOT PROT 4.7 g/dl (6.4-8.2)
[2018-10-19] MEDS ORDERED: NAPH,MB-DB/K PH,MBDB POWDER PACKET PO ONE (08:00)
--- NOTE | 2018-10-19 09:12 | PN ---
Physical Exam: SUBJECTIVE: Patient seen and examined in the ICU. pain ctl w/ INTERN RETAIL. +flatus, tolerating PO clears. denies cp, sob, neuro deficits/numbness tingling. POD4 OBJECTIVE: Vital Signs Period Temp Pulse Resp BP Sys/Cisneros Pulse Ox Last 24 Hr 98.4 F-99.2 F 78-96 10-21 126-150/67-120 100 GENERAL: AOX3 NAD HEENT: NCAT, extraocular movements intact, sclera anicteric, conjunctiva clear. No ptosis. MMM NECK: Trachea midline, full range of motion, supple. LUNGS: CTAB HEART: RRR, S1, S2 without murmur, rub or gallop. ABDOMEN: Soft, NTND normoactive bowel sounds, no guarding, no rebound, EXTREMITIES: 2+ pulses, warm, well-perfused, no edema. NEUROLOGICAL: Cranial nerves II through XII grossly intact. Normal speech, gait not observed. chronic decreased sensation in L LE PSYCH: Normal mood, normal affect. SKIN: Warm, dry, normal turgor, no rashes or lesions noted Laboratory Results - last 24 hr 10/15/18 10/15/18 10/19/18 06:41 07:00 05:30 WBC 7.9 RBC 2.93 L Hgb 8.8 L Hct 26.5 L MCV 90.2 MCH 29.9 MCHC 33.1 RDW 16.7 H Plt Count 153 D MPV 8.4 Absolute Neuts (auto) 6.3 Neutrophils % 79.5 Lymphocytes % 10.9 D Monocytes % 7.8 Eosinophils % 1.5 D Basophils % 0.3 Nucleated RBC % 0 Sodium Potassium Chloride Carbon Dioxide Anion Gap BUN Creatinine Creat Clearance w eGFR Random Glucose Calcium Phosphorus Magnesium Total Bilirubin AST ALT Alkaline Phosphatase Total Protein Albumin Blood Type B POSITIVE B POSITIVE Antibody Screen Negative Crossmatch See Detail See Detail Crossmatch IS Only See Detail 10/19/18 05:30 WBC RBC Hgb Hct MCV MCH MCHC RDW Plt Count MPV Absolute Neuts (auto) Neutrophils % Lymphocytes % Monocytes % Eosinophils % Basophils % Nucleated RBC % Sodium 139 Potassium 3.5 Chloride 103 Carbon Dioxide 29 Anion Gap 6 L BUN 10 Creatinine 0.4 L Creat Clearance w eGFR > 60 Random Glucose 88 Calcium 7.7 L Phosphorus 2.4 L Magnesium 2.2 Total Bilirubin 0.4 AST 43 H ALT 30 Alkaline Phosphatase 61 Total Protein 4.7 L Albumin 1.8 L Blood Type Antibody Screen Crossmatch Crossmatch IS Only Active Medications Generic Name Dose Route Start Last Admin Trade Name Gerard PRN Reason Stop Dose Admin Docusate Sodium 100 mg 10/18/18 14:35 10/18/18 21:32 Colace - PO 100 mg BID LAURA Administration Hydromorphone HCl 10 mg 10/18/18 22:00 10/17/18 06:00 Dilaudid Tack Picker - INTERN RETAIL 10/25/18 21:51 10 mg INTERN RETAIL LAURA Administration Protocol Lactated Ringer's 1,000 mls @ 100 mls/hr 10/15/18 20:00 10/18/18 20:00 Lactated Ringers Solution IV Not Given ASDIR LAURA Ondansetron HCl 4 mg 10/15/18 19:56 Zofran Injection IVPUSH Q6H PRN NAUSEA AND/OR VOMITING ASSESSMENT/PLAN: 68F PMH Right breast Ca, neurogenic bladder, glaucoma, scoliosis, with multi- level lumbar intervertebral disc disorder with bilateral lower extremity radiculopathy and spinal stenosis presents POD4 s/p L1, L2, L3, L4, L5, S1 laminectomies, T6, T7, T8, T9, T10, T11, T12, L1, L2, L3, L4, L5, S1 osteotomies (facetectomies), L1-L2, L2-L3, L3-L4 Pastor Dean Osteotomies, T6- S1 posterior instrumentation, T6-S1 posterolateral arthrodesis, Durotomy repair , Bone allograft, Bone autograft, Bone marrow aspiration, and Complex wound closure Problem List: multi-level lumbar intervertebral disc disorder with bilateral lower extremity radiculopathy 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 has chronic decreased sensation in L LE bilateral lower extremity non weight bearing -OK to elevate head of bed at least 45 degrees so long as patient denies positional headaches. Progress to out of bed to chair. PT eval hemovac drain to suction on home meds eye drops for glaucoma Monitor drain output. s/p Post-op Ancef x 2 doses. Cardiac/pulm/heme/renal/GI maintain MAP >65 cardiac monitoring monitor H/H transfuse PRN dc INTERN RETAIL oxy 10, tylenol, dilauded 0.5mg IV prn for pain ctl O2 PRN PT eval Incentive spirometry No NSAIDs per Dr. Josseline sharp until ambulating (+) flatus. soft diet; advance as tolerated zofran for nausea No bending, lifting, or twisting for 9-12 months FEN LR 21cc replete prn soft diet; advance as tolerated ppx SCDs for DVT PPx- no chemical PPx Dispo POD 4 pt stable and ready for transfer to the floors. further care per primary team/ PCP Visit type - Emergency Visit Emergency Visit: Yes ED Registration Date: 10/15/18 Care time: The patient presented to the Emergency Department on the above date and was hospitalized for further evaluation of their emergent condition. - New Patient This patient is new to me today: Yes Date on this admission: 10/19/18 - Critical Care Critical Care patient: Yes Total Critical Care Time (in minutes): 36 Critical Care Statement: The care of this patient involved high complexity decision making to prevent further life threatening deterioration of the patient 's condition and/or to evaluate & treat vital organ system(s) failure or risk of failure.
[2018-10-19] MEDS: DOCUSATE SODIUM 100 MG CAPSULE (FP) PO SCH (09:48)
[2018-10-19] MEDS ORDERED: SENNOSIDES 8.6MG TABLET (FP) PO PRN ×2 (10:12→22:00)
[2018-10-19] MEDS ORDERED: oxyCODONE HCL 5 MG TABLET PO PRN (10:13)
[2018-10-19] MEDS ORDERED: HYDROmorphone HCL 2 MG TABLET PO PRN (10:14)
[2018-10-19] MEDS ORDERED: LACTATED RINGERS SOLUTION 1,000 ML/1,000 ML INFUS.BAG IV SCH (10:15)
[2018-10-19] MEDS ORDERED: ACETAMINOPHEN 325 MG TABLET (FP) PO PRN (10:15)
[2018-10-19] MEDS ORDERED: HYDROmorphone HCl 2 MG/ML VIAL IVPUSH PRN ×3 (10:17→18:20)
--- NOTE | 2018-10-19 10:57 | PN ---
Teaching Attending Note Name of Resident: Gian Cabrera ATTENDING PHYSICIAN STATEMENT I saw and evaluated the patient. I reviewed the resident's note and discussed the case with the resident. I agree with the resident's findings and plan as documented. SUBJECTIVE: Pt seen and examined in the ICU. Pain controlled. +flatus, tolerated clears. Sitting up now. OBJECTIVE: Vital Signs Period Temp Pulse Resp BP Sys/Cisneros Pulse Ox Last 24 Hr 98.4 F-99.2 F 78-96 10- 126-150/67-120 100 Intake & Output 10/16/18 10/17/18 10/18/18 10/19/18 23:59 23:59 23:59 23:59 Intake Total 2300 1700 1200 1200 Output Total 1085 1110 1480 840 Balance 1215 590 -280 360 Weight 89.358 kg 92.986 kg Gen: NAD at rest Heart: RRR Lung: decreased breath sounds at the bases Abd: soft, nontender Ext: no edema CBC, BMP 10/19/18 05:30 10/19/18 05:30 Active Medications Acetaminophen (Tylenol -) 650 mg PO Q4H PRN PRN Reason: PAIN LEVEL 4 - 6 Docusate Sodium (Colace -) 100 mg PO BID LAURA Last Admin: 10/19/18 09:48 Dose: 100 mg Hydromorphone HCl (Dilaudid Vial -) 0.5 mg IVPUSH Q4H PRN PRN Reason: PAIN LEVEL 7 - 10 Lactated Ringer's (Lactated Ringers Solution) 1,000 ml in 1,000 mls @ 21 mls/ hr IV ASDIR LAURA Ondansetron HCl (Zofran Injection) 4 mg IVPUSH Q6H PRN PRN Reason: NAUSEA AND/OR VOMITING Oxycodone HCl (Roxicodone -) 10 mg PO Q6H PRN PRN Reason: PAIN LEVEL 6-10 Senna (Senna -) 2 tab PO HS PRN PRN Reason: CONSTIPATION ASSESSMENT AND PLAN: Severe Multi-level Lumbar Spinal Stenosis Throracolumbar Scoliosis/Kyphosis s/p L1-S1 Laminectomies/T6-S1 Osteotomies/Facetectomies/Posterior Instrumentation/Posterolateral Arthrodesis/Durotomy Repair/Complex Wound Closure h/o Breast Ca - pain control, transition to PO - incentive spirometry - advance diet as tolerated - d/c sharp when OOB - bowel regimen - rehab/PT - DVT prophylaxis - can monitor on floor
[2018-10-19] MEDS: ACETAMINOPHEN 325 MG TABLET (FP) PO PRN (13:45)
[2018-10-19] MEDS ORDERED: ONDANSETRON 4 MG/2 ML VIAL IVPUSH PRN (16:58)
[2018-10-19] MEDS ORDERED: MAGNESIUM HYDROX 2400MG/30ML ORAL SUSPENSION 30 ML CUP PO PRN (17:54)
[2018-10-19] MEDS ORDERED: POLYETHYLENE GLYCOL 3350 119 GM BTL PO PRN (17:55)
--- NOTE | 2018-10-19 17:57 | PN ---
Physical Exam: SUBJECTIVE: Patient seen and examined, she was transferred from the ICU to the 8th floor today. She has been eating soft foods. She has passed flatus but no BM. Her pain is well-controlled, TRANSLATION DIRECTOR pump has been d/zeny. Requesting a commode and hopes to be d/zeny to [facility] OBJECTIVE: Vital Signs Period Temp Pulse Resp BP Sys/Cisneros Pulse Ox Last 24 Hr 97.5 F-98.9 F 59-90 10-16 126-149/65-85 95-100 GENERAL: The patient is awake, alert, and fully oriented, in no acute distress. HEAD: Normal with no signs of trauma. EYES: PERRL, extraocular movements intact, sclera anicteric, conjunctiva clear. No ptosis. ENT: Ears normal, nares patent, oropharynx clear without exudates, moist mucous membranes. NECK: Trachea midline, full range of motion, supple. LUNGS: Breath sounds equal, clear to auscultation bilaterally, no wheezes, no crackles, no accessory muscle use. HEART: Regular rate and rhythm, S1, S2 without murmur, rub or gallop. ABDOMEN: Obese, soft, nontender, nondistended, normoactive bowel sounds, no guarding, no rebound, no hepatosplenomegaly, no masses. EXTREMITIES: 2+ pulses, warm, well-perfused, no edema. MS: Dressing CDI to thoracic spine, no strike through or surrounding edema, drain with scant amount of serosanguinous drainage NEUROLOGICAL: No facial droop. Normal speech, gait not observed. PSYCH: Normal mood, normal affect. SKIN: Warm, dry, normal turgor, no rashes or lesions noted Laboratory Results - last 24 hr 10/15/18 10/19/18 10/19/18 06:41 05:30 05:30 WBC 7.9 RBC 2.93 L Hgb 8.8 L Hct 26.5 L MCV 90.2 MCH 29.9 MCHC 33.1 RDW 16.7 H Plt Count 153 D MPV 8.4 Absolute Neuts (auto) 6.3 Neutrophils % 79.5 Lymphocytes % 10.9 D Monocytes % 7.8 Eosinophils % 1.5 D Basophils % 0.3 Nucleated RBC % 0 Sodium 139 Potassium 3.5 Chloride 103 Carbon Dioxide 29 Anion Gap 6 L BUN 10 Creatinine 0.4 L Creat Clearance w eGFR > 60 Random Glucose 88 Calcium 7.7 L Phosphorus 2.4 L Magnesium 2.2 Total Bilirubin 0.4 AST 43 H ALT 30 Alkaline Phosphatase 61 Total Protein 4.7 L Albumin 1.8 L Crossmatch See Detail Active Medications Generic Name Dose Route Start Last Admin Trade Name Freq PRN Reason Stop Dose Admin Acetaminophen 650 mg 10/19/18 10:39 10/19/18 13:45 Tylenol - PO 650 mg Q4H PRN Administration PAIN LEVEL 1-3 Docusate Sodium 100 mg 10/19/18 22:00 Colace - PO BID LAURA Hydromorphone HCl 0.5 mg 10/19/18 16:58 Dilaudid Vial - IVPUSH Q4H PRN PAIN LEVEL 4-6 Ondansetron HCl 4 mg 10/19/18 16:58 Zofran Injection IVPUSH Q6H PRN NAUSEA AND/OR VOMITING Oxycodone HCl 10 mg 10/19/18 16:58 Roxicodone - PO Q6H PRN PAIN LEVEL 7-10 Senna 2 tab 10/19/18 22:00 Senna - PO HS PRN CONSTIPATION ASSESSMENT/PLAN: 68 year old female with a PMH significant for Right breast Ca, neurogenic bladder, glaucoma, scoliosis, with multi-level lumbar intervertebral disc disorder with bilateral lower extremity radiculopathy and spinal stenosis. Patient is POD #2 s/p L1, L2, L3, L4, L5, S1 laminectomies, T6, T7, T8, T9, T10 , T11, T12, L1, L2, L3, L4, L5, S1 osteotomies (facetectomies), L1-L2, L2-L3, L3 -L4 Apstor Dean Osteotomies, T6-S1 posterior instrumentation, T6-S1 posterolateral arthrodesis, Durotomy repair, Bone allograft, Bone autograft, Bone marrow aspiration, and Complex wound closure Thoraco-lumbar decompression and fusion POD #3 - s/p Post-op Ancef x 2 doses - Monitor drain output - Incentive spirometry - Elevate HOB at least 45 degrees, monitor for positional headaches, progress to out of bed to chair. - Bhakta care; d/c when ambulating - Bowel regimen, patient requesting d/c of all standing meds and she will request PRN when needed. - PT/OT/Rehab, OOB - WBAT B/L LE - No bending, lifting, or twisting for 9-12 months FEN - LR @ 100cc/hr - Replete prn - Soft diet Prophylaxis DVT: SCDs Dispo ICU monitoring POD 2 Visit type - Emergency Visit Emergency Visit: No - New Patient This patient is new to me today: No - Critical Care Critical Care patient: No
[2018-10-19] MEDS: oxyCODONE HCL 5 MG TABLET PO PRN (20:12)
[2018-10-19] MEDS ORDERED: DOCUSATE SODIUM 100 MG CAPSULE (FP) PO SCH (22:00)
[2018-10-19] MEDS: HYDROmorphone HCl 2 MG/ML VIAL IVPB PRN (22:36)
[2018-10-20] MEDS: ACETAMINOPHEN 325 MG TABLET (FP) PO PRN ×3 (01:49→15:17)
[2018-10-20] MEDS: oxyCODONE HCL 5 MG TABLET PO PRN ×3 (01:50→15:16)
[2018-10-20] MEDS: HYDROmorphone HCl 2 MG/ML VIAL IVPB PRN ×3 (05:56→13:41)
[2018-10-20 08:20] LABS: BASO % 0.5 % (0-2.0); EOS % 1.4 % (0-4.5); HEMATOCRIT 25.9 % (32.4-45.2); HEMOGLOBIN 8.3 GM/dL (10.7-15.3); LYMPH % 9.3 % (8-40); MCH 29.1 pg (25.7-33.7); MCHC 32.1 g/dl (32.0-36.0); MEAN CELL VOLUME 90.7 fl (80-96); MEAN PLT VOLUME 8.2 fl (7.5-11.1); MONO % 7.4 % (3.8-10.2); NEUT % 81.4 % (42.8-82.8); PLATELET COUNT 193 K/MM3 (134-434); RBC 2.86 M/mm3 (3.60-5.2); RDW 16.1 % (11.6-15.6); WHITE BLOOD COUNT 6.3 K/mm3 (4.0-10.0)
[2018-10-20 09:10] LABS: ALBUMIN 1.9 g/dl (3.4-5.0); ALK PHOS 64 U/L (45-117); ANION GAP 10 MMOL/L (8-16); BILIRUBIN,TOTAL 0.4 mg/dL (0.2-1); BLOOD UREA NITROGEN 9 mg/dL (7-18); CALCIUM 7.8 mg/dL (8.5-10.1); CHLORIDE 103 mmol/L (98-107); CO2 28 mmol/L (21-32); CREATININE 0.4 mg/dL (0.55-1.3); GLUCOSE,RANDOM 90 mg/dL (74-106); MAGNESIUM 2.2 mg/dL (1.8-2.4); PHOSPHOROUS 2.9 mg/dL (2.5-4.9); POTASSIUM 3.4 mmol/L (3.5-5.1); SGOT/AST 44 U/L (15-37); SGPT/ALT 41 U/L (13-61); SODIUM 141 mmol/L (136-145); TOT PROT 5.1 g/dl (6.4-8.2)
--- NOTE | 2018-10-20 12:27 | PN ---
Progress Note (short form) - Note Progress Note: Anesthesia ASSISTANT PROFESSOR OF RADIOLOGY round, POD#5, S/P T6-S1 instrumentation and laminectomy. Pat seen and examined. VSS. limited ambulation.ASSISTANT PROFESSOR OF RADIOLOGY was D/C'd yesterday, 10/19. Doing well. Pain controlled by prn meds by primary team.Signed off.
--- NOTE | 2018-10-20 13:42 | PN ---
Physical Exam: SUBJECTIVE: Patient seen and examined. She reports her pain is well-controlled, she is eating well, has not yet had a bowel movement. Denies GOMEZ, chest pain, SOB , n/v/d. [facility] OBJECTIVE: Vital Signs Period Temp Pulse Resp BP Sys/Cisneros Pulse Ox Last 24 Hr 97.5 F-98.6 F 59-94 14-20 135-168/65-84 GENERAL: The patient is awake, alert, and fully oriented, in no acute distress. HEAD: Normal with no signs of trauma. EYES: PERRL, extraocular movements intact, sclera anicteric, conjunctiva clear. No ptosis. ENT: Ears normal, nares patent, oropharynx clear without exudates, moist mucous membranes. NECK: Trachea midline, full range of motion, supple. LUNGS: Breath sounds equal, clear to auscultation bilaterally, no wheezes, no crackles, no accessory muscle use. HEART: Regular rate and rhythm, S1, S2 without murmur, rub or gallop. ABDOMEN: Obese, soft, nontender, nondistended, normoactive bowel sounds, no guarding, no rebound, no hepatosplenomegaly, no masses. EXTREMITIES: 2+ pulses, warm, well-perfused, no edema. MS: Dressing CDI to thoracic spine, no strike through or surrounding edema, drain with scant amount of serosanguinous drainage NEUROLOGICAL: No facial droop. Normal speech, gait not observed. PSYCH: Normal mood, normal affect. SKIN: Warm, dry, normal turgor, no rashes or lesions noted Laboratory Results - last 24 hr 10/15/18 10/20/18 10/20/18 06:41 06:15 06:15 WBC 6.3 RBC 2.86 L Hgb 8.3 L Hct 25.9 L MCV 90.7 MCH 29.1 MCHC 32.1 RDW 16.1 H Plt Count 193 D MPV 8.2 Absolute Neuts (auto) 5.2 Neutrophils % 81.4 Lymphocytes % 9.3 Monocytes % 7.4 Eosinophils % 1.4 Basophils % 0.5 Nucleated RBC % 0 Sodium 141 Potassium 3.4 L Chloride 103 Carbon Dioxide 28 Anion Gap 10 BUN 9 Creatinine 0.4 L Creat Clearance w eGFR > 60 Random Glucose 90 Calcium 7.8 L Phosphorus 2.9 Magnesium 2.2 Total Bilirubin 0.4 AST 44 H ALT 41 Alkaline Phosphatase 64 Total Protein 5.1 L Albumin 1.9 L Crossmatch See Detail Active Medications Generic Name Dose Route Start Last Admin Trade Name Evangelistaq PRN Reason Stop Dose Admin Acetaminophen 650 mg 10/19/18 10:39 10/20/18 08:24 Tylenol - PO 650 mg Q4H PRN Administration PAIN LEVEL 1-3 Hydromorphone HCl 0.5 mg 10/19/18 18:42 10/20/18 09:41 Dilaudid Vial - IVPB 0.5 mg Q4H PRN Administration PAIN LEVEL 4-6 Magnesium Hydroxide 30 ml 10/19/18 17:54 Milk Of Magnesia - PO DAILY PRN CONSTIPATION Ondansetron HCl 4 mg 10/19/18 16:58 Zofran Injection IVPUSH Q6H PRN NAUSEA AND/OR VOMITING Oxycodone HCl 10 mg 10/19/18 16:58 10/20/18 08:23 Roxicodone - PO 10 mg Q6H PRN Administration PAIN LEVEL 7-10 Polyethylene Glycol 17 gm 10/19/18 17:55 Miralax (For Daily Use) - PO DAILY PRN CONSTIPATION ASSESSMENT/PLAN: 68 year old female with a PMH significant for Right breast Ca, neurogenic bladder, glaucoma, scoliosis, with multi-level lumbar intervertebral disc disorder with bilateral lower extremity radiculopathy and spinal stenosis. Patient is POD #2 s/p L1, L2, L3, L4, L5, S1 laminectomies, T6, T7, T8, T9, T10 , T11, T12, L1, L2, L3, L4, L5, S1 osteotomies (facetectomies), L1-L2, L2-L3, L3 -L4 Pastor Dean Osteotomies, T6-S1 posterior instrumentation, T6-S1 posterolateral arthrodesis, Durotomy repair, Bone allograft, Bone autograft, Bone marrow aspiration, and Complex wound closure Thoraco-lumbar decompression and fusion POD #3 - s/p Post-op Ancef x 2 doses - Monitor drain output - Incentive spirometry - Elevate HOB at least 45 degrees, monitor for positional headaches, progress to out of bed to chair. - Bhakta care; d/c when ambulating - Bowel regimen, patient requested d/c of all standing meds and she will request PRN when needed. - PT/OT/Rehab, OOB - WBAT B/L LE - No bending, lifting, or twisting for 9-12 months FEN - LR @ 100cc/hr - Replete prn - Soft diet Prophylaxis DVT: SCDs Dispo: Patient requires further inpatient monitoring until she has been accepted ad subacute rehab. Visit type - Emergency Visit Emergency Visit: No - New Patient This patient is new to me today: No - Critical Care Critical Care patient: No
[2018-10-20] MEDS ORDERED: HYDROmorphone HCL CARPU-JECT 2 MG/1 ML DISP.SYRIN IM ONE (14:15)
--- NOTE | 2018-10-20 16:15 | PN ---
Progress Note (short form) - Note Progress Note: POD#5 C/O mild incisional pain No leg pain Drain removed New dressing applied Neuro Fully intact No headache ASSESS Doing well PLAN PT Mobilise Pain Mx to increase Oxycodone to three times per day
[2018-10-20] MEDS ORDERED: KETOROLAC TROMETHAMINE 30 MG/1 ML VIAL IM PRN (17:15)
[2018-10-20] MEDS: oxyCODONE HCL 10 MG SUSTAINED ACTING TABLET PO SCH ×2 (17:17→22:10)
[2018-10-20] MEDS: GABAPENTIN 100 MG CAPSULE (FP) PO SCH ×2 (17:18→22:11)
[2018-10-20] MEDS ORDERED: oxyCODONE HCL 10 MG SUSTAINED ACTING TABLET PO SCH (22:00)
[2018-10-21] MEDS: oxyCODONE HCL 10 MG SUSTAINED ACTING TABLET PO SCH ×3 (05:24→22:01)
[2018-10-21 08:44] LABS: HEMATOCRIT 26.9 % (32.4-45.2); HEMOGLOBIN 8.8 GM/dL (10.7-15.3); MCH 29.3 pg (25.7-33.7); MCHC 32.9 g/dl (32.0-36.0); MEAN CELL VOLUME 89.2 fl (80-96); MEAN PLT VOLUME 7.9 fl (7.5-11.1); PLATELET COUNT 251 K/MM3 (134-434); RBC 3.01 M/mm3 (3.60-5.2); RDW 15.9 % (11.6-15.6); WHITE BLOOD COUNT 8.1 K/mm3 (4.0-10.0)
[2018-10-21 09:13] LABS: ANION GAP 11 MMOL/L (8-16); BLOOD UREA NITROGEN 7 mg/dL (7-18); CHLORIDE 101 mmol/L (98-107); CO2 29 mmol/L (21-32); CREATININE 0.4 mg/dL (0.55-1.3); GLUCOSE,RANDOM 91 mg/dL (74-106); MAGNESIUM 2.3 mg/dL (1.8-2.4); POTASSIUM 3.4 mmol/L (3.5-5.1); SODIUM 141 mmol/L (136-145)
[2018-10-21] MEDS: GABAPENTIN 100 MG CAPSULE (FP) PO SCH ×2 (09:23→22:01)
--- NOTE | 2018-10-21 10:32 | PN ---
Physical Exam: SUBJECTIVE: Patient seen and examined. She reports her pain has not been well controlled. Seen by Dr. Manjarrez last night, drain removed and new dressing applied , and started on Oxycodone 10 mg TID and gabapentin. brought commode for bedside OBJECTIVE: Vital Signs Period Temp Pulse Resp BP Sys/Cisneros Pulse Ox Last 24 Hr 98.4 F-99.7 F 77-87 18-20 142-175/71-96 99 GENERAL: Lying in bed at an angle, appears uncomfortable, awake, alert, and fully oriented HEAD: Normal with no signs of trauma. EYES: PERRL, extraocular movements intact, sclera anicteric, conjunctiva clear. No ptosis. ENT: Ears normal, nares patent, oropharynx clear without exudates, moist mucous membranes. NECK: Trachea midline, full range of motion, supple. LUNGS: Breath sounds equal, clear to auscultation bilaterally, no wheezes, no crackles, no accessory muscle use. HEART: Regular rate and rhythm, S1, S2 without murmur, rub or gallop. ABDOMEN: Obese, soft, nontender, nondistended, normoactive bowel sounds, no guarding, no rebound, no hepatosplenomegaly, no masses. EXTREMITIES: 2+ pulses, warm, well-perfused, no edema. MS: Dressing CDI to thoracic spine, no strike through or surrounding edema NEUROLOGICAL: No facial droop. Normal speech, gait not observed. PSYCH: Normal mood, normal affect. SKIN: Warm, dry, normal turgor, no rashes or lesions noted Laboratory Results - last 24 hr 10/21/18 10/21/18 07:24 07:24 WBC 8.1 RBC 3.01 L Hgb 8.8 L Hct 26.9 L MCV 89.2 MCH 29.3 MCHC 32.9 RDW 15.9 H Plt Count 251 D MPV 7.9 Sodium 141 Potassium 3.4 L Chloride 101 Carbon Dioxide 29 Anion Gap 11 BUN 7 Creatinine 0.4 L Creat Clearance w eGFR > 60 Random Glucose 91 Calcium 8.0 L Magnesium 2.3 Active Medications Generic Name Dose Route Start Last Admin Trade Name Freq PRN Reason Stop Dose Admin Acetaminophen 650 mg 10/19/18 10:39 10/20/18 15:17 Tylenol - PO 650 mg Q4H PRN Administration PAIN LEVEL 1-3 Gabapentin 200 mg 10/20/18 17:15 10/21/18 09:23 Neurontin - PO 200 mg BID LAURA Administration Ketorolac Tromethamine 30 mg 10/20/18 17:15 Toradol Injection - IM 10/25/18 17:14 Q6H PRN PAIN LEVEL 4 - 6 Magnesium Hydroxide 30 ml 10/19/18 17:54 Milk Of Magnesia - PO DAILY PRN CONSTIPATION Ondansetron HCl 4 mg 10/19/18 16:58 Zofran Injection IVPUSH Q6H PRN NAUSEA AND/OR VOMITING Oxycodone HCl 10 mg 10/20/18 17:15 10/21/18 05:24 Oxycontin - PO 10 mg TID LAURA Administration Polyethylene Glycol 17 gm 10/19/18 17:55 Miralax (For Daily Use) - PO DAILY PRN CONSTIPATION ASSESSMENT/PLAN: 68 year old female with a PMH significant for Right breast Ca, neurogenic bladder, glaucoma, scoliosis, with multi-level lumbar intervertebral disc disorder with bilateral lower extremity radiculopathy and spinal stenosis. Patient is POD #2 s/p L1, L2, L3, L4, L5, S1 laminectomies, T6, T7, T8, T9, T10 , T11, T12, L1, L2, L3, L4, L5, S1 osteotomies (facetectomies), L1-L2, L2-L3, L3 -L4 Pastor Dean Osteotomies, T6-S1 posterior instrumentation, T6-S1 posterolateral arthrodesis, Durotomy repair, Bone allograft, Bone autograft, Bone marrow aspiration, and Complex wound closure Thoraco-lumbar decompression and fusion POD #3 - s/p Post-op Ancef x 2 doses - Incentive spirometry - Elevate HOB at least 45 degrees, monitor for positional headaches, progress to out of bed to chair. - Bhakta d/zeny - Bowel regimen, patient requested d/c of all standing meds and she will request PRN when needed. - PT/OT/Rehab, OOB - WBAT B/L LE - No bending, lifting, or twisting for 9-12 months - Drain removed - Pain management with oxycodone 10 mg TID and Gabapentin 200 mg TID. FEN - LR @ 100cc/hr - Replete prn - Soft diet Prophylaxis DVT: SCDs Dispo: Patient requires further inpatient monitoring until she has been accepted ad subacute rehab. Visit type - Emergency Visit Emergency Visit: No - New Patient This patient is new to me today: No - Critical Care Critical Care patient: No
[2018-10-21] MEDS ORDERED: BISACODYL 10 MG SUPP.RECT PR PRN (11:29)
[2018-10-21] MEDS ORDERED: BISACODYL 10 MG SUPP.RECT RC PRN (11:53)
[2018-10-21] MEDS ORDERED: MELATONIN 5 MG TABLETS PO ONE (21:07)
[2018-10-22] MEDS: oxyCODONE HCL 10 MG SUSTAINED ACTING TABLET PO SCH (06:00)
[2018-10-22 06:41] VITALS: TEMP 98.9
[2018-10-22 07:20] LABS: HEMATOCRIT 26.4 % (32.4-45.2); HEMOGLOBIN 9.4 GM/dL (10.7-15.3); MCH 31.6 pg (25.7-33.7); MCHC 35.5 g/dl (32.0-36.0); PLATELET COUNT 327 K/MM3 (134-434); RBC 2.96 M/mm3 (3.60-5.2); WHITE BLOOD COUNT 7.9 K/mm3 (4.0-10.0)
[2018-10-22 08:02] LABS: ANION GAP 8 MMOL/L (8-16); BLOOD UREA NITROGEN 9 mg/dL (7-18); CALCIUM 8.2 mg/dL (8.5-10.1); CHLORIDE 100 mmol/L (98-107); CO2 30 mmol/L (21-32); CREATININE 0.4 mg/dL (0.55-1.3); GLUCOSE,RANDOM 86 mg/dL (74-106); MAGNESIUM 2.2 mg/dL (1.8-2.4); POTASSIUM 3.3 mmol/L (3.5-5.1); SODIUM 138 mmol/L (136-145)
[2018-10-22] MEDS ORDERED: oxyCODONE HCL 5 MG TABLET PO PRN (09:20)
--- NOTE | 2018-10-22 09:20 | PN ---
Progress Note (short form) - Note Progress Note: 68F POD #7 s/p: 1. L1, L2, L3, L4, L5, S1 laminectomies 2. T6, T7, T8, T9, T10, T11, T12, L1, L2, L3, L4, L5, S1 osteotomies ( facetectomies) 3. L1-L2, L2-L3, L3-L4 Pastor Dean Osteotomies 4. T6-S1 posterior instrumentation 5. T6-S1 posterolateral arthrodesis 6. Durotomy repair 7. Bone allograft 8. Bone autograft 9. Bone marrow aspiration 10. Complex wound closure (>45cm) Pain well controlled. No acute events overnight. Pt. denies any positional or persistent headaches, chest pain, shortness of breath, vomiting, chills, sweats. (+) Voiding; (+) Flatus; (-) BM. All labs, vitals, I&O reviewed. PE: AAO x 3, NAD. L-Spine: Dressing C/D/I. B/L LE Motor Exam at Baseline: All muscles supplying hips, knees, ankles, hindfeet, midfeet, and forefeet intact & at least 3/5. (+) Functional weakness secondary to surgery, back pain, and post-operative deconditioning. RLE Sensory Exam at Baseline: L2-L3 2/2; L4-S1 1/2. LLE Sensory Exam at Baseline: L2-S1 2/2. B/L LE Vascular: Normal arterial supply & venous drainage. 68F POD #7 s/p: 1. L1, L2, L3, L4, L5, S1 laminectomies 2. T6, T7, T8, T9, T10, T11, T12, L1, L2, L3, L4, L5, S1 osteotomies ( facetectomies) 3. L1-L2, L2-L3, L3-L4 Pastor Dean Osteotomies 4. T6-S1 posterior instrumentation 5. T6-S1 posterolateral arthrodesis 6. Durotomy repair 7. Bone allograft 8. Bone autograft 9. Bone marrow aspiration 10. Complex wound closure (>45cm) -Pain control: NO NSAID's. -DVT PPx: -Mechanical only: JAIDEN's, SCD's. -Chemical: None. -Incentive spirometry. -PT/OT/Rehab, OOB. -WBAT B/L LE. -No bending, lifting, or twisting for 9-12 months. -Care per medical hospitalist teams. -Discharge planning: [facility]; f/u with [facility] [place] office 10-14 days after discharge; call for appointment . -Will follow. Flynn Manjarrez MD (Orthopaedic Surgery).
[2018-10-22] MEDS ORDERED: ONDANSETRON *ODT* 4 MG TABLET SL PRN (09:22)
[2018-10-22] MEDS ORDERED: PT OWN MED DRAWER 7, Y5N ONE ×2 (11:31→13:35)
--- NOTE | 2018-10-22 12:56 | DS ---
Physical Examination Vital Signs: Vital Signs Temperature 98.9 F 10/22/18 06:40 Pulse Rate 80 10/22/18 06:40 Respiratory Rate 18 10/22/18 09:00 Blood Pressure 159/75 10/22/18 06:40 O2 Sat by Pulse Oximetry (%) 100 10/22/18 09:00 Findings/Remarks: 68 year old F s/p T6-S1 spinal decompression with fusion under general anesthesia. Her post op course has been uncomplicated. Her Drain was removed on 10/20, however, her pain has not been well controlled off INSTRUCTOR OF SOCIOLOGY pump. She was switched from oxycontin 10mg TID to oxycodone 10mg QID on the morning of 10/22. She had a small BM on 10/21, will continue with intense bowel regimen. Patient is deemed stable for transfer to rehab facility. Constitutional: Yes: Well Nourished, Calm, Mild Distress (due to pain not being well controlled) Eyes: Yes: Conjunctiva Clear, EOM Intact, PERRL HENT: Yes: Atraumatic, Normocephalic Neck: Yes: Supple, Trachea Midline Cardiovascular: Yes: Regular Rate and Rhythm, Murmur (systolic) Respiratory: Yes: Regular, CTA Bilaterally Gastrointestinal: Yes: Soft, Abdomen, Obese, Hypoactive Bowel Sounds ...Rectal Exam: Yes: Deferred Musculoskeletal: Yes: Back Pain, Muscle Pain, Muscle Weakness Extremities: Yes: WNL, Cool Edema: No Peripheral Pulses WNL: Yes Peripheral Pulses: Left Radial: 2+, Right Radial: 2+, Left Doralis Pedis: 2+, Right Dorsalis Pedis: 2+ Integumentary: Yes: WNL, Incision (spinal dressing clean dry and intact) Neurological: Yes: Alert, Oriented, Unsteady Gait (slow gait due to recent spinal surgery) ...Motor Strength: LUE (normal), LLE (reduced 4/5), RUE, RLE (reduced 4/5) Psychiatric: Yes: Alert, Oriented (mild irritability) Labs: CBC, BMP 10/22/18 06:15 10/22/18 06:15 Discharge Summary Reason For Visit: SPINAL STENONIS LUMBAR REGION pain control-- start oxycodone Procedures: Principal: L1-S1 laminectomies. T6-S1 osteotomies. L1-L2, L2-3, L3 -4 bautista Dean OSteotomies. T-S1 posterior instrumentation. T6-S1 posterolateral arthrodesis. Durotomy repair. Bone Allograft. Bone Autograft. bone marrow aspiration. complex wound closure > 45cm Hospital Course: Patient had no acute events post-op Condition: Good - Instructions Diet, Activity, Other Instructions: 68F POD #7 s/p: 1. L1, L2, L3, L4, L5, S1 laminectomies 2. T6, T7, T8, T9, T10, T11, T12, L1, L2, L3, L4, L5, S1 osteotomies ( facetectomies) 3. L1-L2, L2-L3, L3-L4 Bautista Dean Osteotomies 4. T6-S1 posterior instrumentation 5. T6-S1 posterolateral arthrodesis 6. Durotomy repair 7. Bone allograft 8. Bone autograft 9. Bone marrow aspiration 10. Complex wound closure (>45cm) -Pain control: NO NSAID's. -DVT PPx: -Mechanical only: JAIDEN's, SCD's. -Chemical: None. -Incentive spirometry. -PT/OT/Rehab, OOB. -WBAT B/L LE. -No bending, lifting, or twisting for 9-12 months. -Care per medical hospitalist teams. -Discharge planning: [facility] -f/u with [facility] [place] [facility] 10-14 days after discharge; call for appointment . Referrals: Flynn Manjarrez MD [Staff Physician] - Disposition: LONG TERM FACILITY - Home Medications Comprehensive Discharge Medication List: Ambulatory Orders SEE DISCHARGE MEDICATION LIST This patient is new to me today: No Emergency Visit: No Critical Care patient: No - Discharge Referral Referred to [facility] No Quality Measures-Exclusions - VTE Prophylaxis Contraindications to VTE Prophylaxis: Surgical Contraindication
[2018-10-22] MEDS ORDERED: GABAPENTIN 100 MG CAPSULE (FP) PO SCH (14:00)
[2018-10-22] MEDS: SCOPOLAMINE HYDROBROMIDE 1 PATCH PATCH.TD72 TD SCH ×2 (14:00→14:01)
[2018-10-22 16:49] VITALS: BP 162/90; PULSE 89
[2018-10-22] MEDS ORDERED: DOCUSATE SODIUM 100 MG CAPSULE (FP) PO SCH (22:00)
== END 2018-10-22 14:27 | DRG 457 ==
LOC: EDBD → JSAMEDAYSX 06:07 → JICU 10-16 15:11 → J8W 10-19 16:38
PROVIDERS: ADMIT Orthopaedic Surgery Orthopaedic Surgery of the Spine; ATTEND Orthopaedic Surgery Orthopaedic Surgery of the Spine
PROC: 0SG10AJ Fusion of 2 or more Lumbar Vertebral Joints with Interbody Fusion Device, Posterior Approach, Anterior Column, Open Approach (ICD-10-PCS; 2018-10-15)
PROC: 00QT0ZZ Repair Spinal Meninges, Open Approach (ICD-10-PCS; 2018-10-15)
PROC: 0Q800ZZ Division of Lumbar Vertebra, Open Approach (ICD-10-PCS; 2018-10-15)
PROC: B01BZZZ Fluoroscopy of Spinal Cord (ICD-10-PCS; 2018-10-15)
PROC: 4A1004G Monitoring of Central Nervous Electrical Activity, Intraoperative, Open Approach (ICD-10-PCS; 2018-10-15)
PROC: 30233N1 Transfusion of Nonautologous Red Blood Cells into Peripheral Vein, Percutaneous Approach (ICD-10-PCS; 2018-10-15)
PROC: 0RG70AJ Fusion of 2 to 7 Thoracic Vertebral Joints with Interbody Fusion Device, Posterior Approach, Anterior Column, Open Approach (ICD-10-PCS; principal; 2018-10-15 08:00)
DX: M41.86 Other forms of scoliosis, lumbar region (principal); D62 Acute posthemorrhagic anemia; G96.11 Dural tear; M48.062 Spinal stenosis, lumbar region with neurogenic claudication; M40.295 Other kyphosis, thoracolumbar region; N31.9 Neuromuscular dysfunction of bladder, unspecified; H40.9 Unspecified glaucoma; Z85.3 Personal history of malignant neoplasm of breast; M51.16 Intervertebral disc disorders with radiculopathy, lumbar region; E66.9 Obesity, unspecified; Z68.34 Body mass index [BMI] 34.0-34.9, adult; M43.16 Spondylolisthesis, lumbar region
CPT/HCPCS: 36415; 36430; 36511; 36600; 76000-TC-FY; 80048; 80053; 82803; 83735; 84100; 85025; 85027; 86850; 86900; 86901; 86922; 94760; 97116-GP; 97162-GP; J0131; J1644; P9038; P9058

== ENCOUNTER 2020-03-11 08:00 | Inpatient (IN) | payer OTHER ==
[2020-06-17 06:53] VITALS: BMI 30.7
[2020-06-17] MEDS ORDERED: MIDAZOLAM HCL 2 MG/2 ML SINGLE DOSE VIAL ONE ×3 (07:06→07:08)
[2020-06-17] MEDS ORDERED: BUPIVACAINE LIPOSOME/PF (EXPAREL) 266 MG/20 ML VIAL ONE (07:06)
[2020-06-17] MEDS ORDERED: ceFAZolin SODIUM 1 GM VIAL ONE ×2 (07:07→10:03)
[2020-06-17] MEDS ORDERED: LIDOCAINE HCL/PF 2% SDV 5ML VIAL ONE (07:07)
[2020-06-17] MEDS ORDERED: SODIUM CHLORIDE 0.9% P/F 10 ML VIAL IJ ONE ×2 (07:07)
[2020-06-17] MEDS ORDERED: PROPOFOL 20 ML ONE ×3 (07:08)
[2020-06-17] MEDS ORDERED: TRANEXAMIC ACID 1000 MG/10 ML VIAL ONE ×2 (07:10→10:03)
[2020-06-17] MEDS ORDERED: oxyCODONE HCL 5 MG TABLET PO PRN (07:22)
[2020-06-17] MEDS ORDERED: traMADol HCL 50 MG TABLET PO PRN (07:22)
[2020-06-17] MEDS ORDERED: ONDANSETRON 4 MG/2 ML VIAL IVPUSH PRN ×2 (07:22→11:41)
[2020-06-17] MEDS ORDERED: VANCOMYCIN 1,000 MG VIAL (RESTRICTED TO ID ONLY) ONE (08:17)
[2020-06-17] MEDS ORDERED: DEXAMETHASONE SOD PHOSPHATE 4 MG/1 ML VIAL ONE (08:30)
[2020-06-17] MEDS ORDERED: ePHEDrine SULFATE 50 MG/1 ML AMPULE ONE (08:46)
[2020-06-17] MEDS ORDERED: oxyCODONE HCL 10 MG SUSTAINED ACTING TABLET PO SCH (10:00)
[2020-06-17] MEDS ORDERED: BENZOIN/ALOE VERA/STORAX/TOLU 58 ML BOTTLE ONE (11:12)
[2020-06-17] MEDS ORDERED: MAG HYDROX/AL HYDROX/SIMETH 30 ML UNIT-DOSE CUP PO PRN (11:41)
[2020-06-17] MEDS ORDERED: MAGNESIUM HYDROX 2400MG/30ML ORAL SUSPENSION 30 ML CUP PO PRN (11:41)
[2020-06-17] MEDS ORDERED: LACTATED RINGERS SOLUTION 1,000 ML IV SCH (11:45)
--- NOTE | 2020-06-17 11:45 | PN ---
Progress Note (short form) - Note Progress Note: 69F s/p RIGHT total knee replacement POD #0. -Pain control: per anaesthesia team. -DVT PPx: -Chemical: ASA 81mg PO BID x 6 weeks. -Mechanical: JAIDEN's, SCD's. -Incentive spirometry q15 min. -PT/OT/Rehab, OOB. -WBAT RLE. -Post-op Ancef x 3 doses. -f/u post-op TOV: 8 hours max. -f/u AM labs. -Diet as tolerated. -Care per medical hospitalist team. -Discharge planning: home health aid arranged; f/u [facility] [place] [facility] 7-10 days after discharge; call for appointment . -Will follow. Flynn Manjarrez MD (Orthopaedic Surgery).
--- NOTE | 2020-06-17 11:47 | OP ---
Operative Note - Note: Operative Date: 06/17/20 Pre-Operative Diagnosis: Right knee DJD Operation: R TKA Findings: Tricompartment DJD Tourniquet Pressure: 350mmHg Torniquet Time: 132 min Implants: Peter Triathlon. Femur - 3. Tibia - 4. Poly - 9mm, TS. Patella - 27mm, symmetric Post-Operative Diagnosis: Same as Pre-op Surgeon: Flynn Manjarrez Primary Special Education Teacher: Andre Manjarrez Anesthesiologist/ALTERNATIVE ENERGY TECHNICIAN: Jayne Rodriguez Anesthesia: General, Spinal Specimens Removed: Bone, soft tissue Estimated Blood Loss (mls): 0 Drains & Tubes with Location: 1 x deep HemoVac Fluid Volume Replaced (mls): 900 (Crystalloid) Operative Report Dictated: Yes
[2020-06-17] MEDS ORDERED: KETOROLAC TROMETHAMINE 30 MG/1 ML VIAL ONE (11:48)
[2020-06-17] MEDS ORDERED: ACETAMINOPHEN 1000 MG/100 ML VIAL (NON FORMULARY) IVPB ONE (12:00)
--- NOTE | 2020-06-17 12:07 | HP ---
CHIEF COMPLAINT: Right knee pain HISTORY OF PRESENT ILLNESS: 69 year-old female with a PMH significant for asthma, anemia, breast cancer s/p surgeries x 2, chronic venous insufficiency, glaucoma, and right knee DJD s/p right total knee arthroplasty today with Dr. Flynn Manjarrez. Recent Travel: No PAST MEDICAL HISTORY: Asthma Anemia Breast cancer Chronic venous insufficiency Glaucoma PAST SURGICAL HISTORY: Breast surgery right lumpectomy 1997 Breast surgery 2007 Social History: , 5 children, preschool business intelligence [employer] Smoking: never Alcohol: social Drugs: no Allergies No Known Drug Allergies Allergy (Verified 06/09/20 14:47) Family history: mother DVT, father CHF, HTN HOME MEDICATIONS: Home Medications Medication Instructions Recorded Timolol [Betimol] 1 ml OU DAILY 10/11/18 Travoprost [Travatan Z] 1 ml OU HS 10/11/18 Tramadol HCl 100 mg PO TID PRN 06/09/20 REVIEW OF SYSTEMS CONSTITUTIONAL: Absent: fever, chills, diaphoresis, generalized weakness, malaise, loss of appetite, weight change HEENT: Absent: rhinorrhea, nasal congestion, throat pain, throat swelling, difficulty swallowing, mouth swelling, ear pain, eye pain, visual changes CARDIOVASCULAR: Absent: chest pain, syncope, palpitations, irregular heart rate, lightheadedness, peripheral edema RESPIRATORY: Absent: cough, shortness of breath, dyspnea with exertion, orthopnea, wheezing, stridor, hemoptysis GASTROINTESTINAL: Absent: abdominal pain, abdominal distension, nausea, vomiting, diarrhea, constipation, melena, hematochezia GENITOURINARY: Absent: dysuria, frequency, urgency, hesitancy, hematuria, flank pain, genital pain MUSCULOSKELETAL: Absent: myalgia, arthralgia, joint swelling, back pain, neck pain SKIN: Absent: rash, itching, pallor HEMATOLOGIC/IMMUNOLOGIC: Absent: easy bleeding, easy bruising, lymphadenopathy, frequent infections ENDOCRINE: Absent: unexplained weight gain, unexplained weight loss, heat intolerance, cold intolerance NEUROLOGIC: Absent: headache, focal weakness or paresthesias, dizziness, unsteady gait, seizure, mental status changes, bladder or bowel incontinence PSYCHIATRIC: Absent: anxiety, depression, suicidal or homicidal ideation, hallucinations. PHYSICAL EXAMINATION Vital Signs - 24 hr 06/17/20 06/17/20 06/17/20 06:47 11:35 11:40 Temperature 98.8 F 97.4 F L Pulse Rate 54 L 64 58 L Respiratory 18 12 12 Rate Blood Pressure 141/76 165/88 162/76 O2 Sat by Pulse 98 98 98 Oximetry (%) 06/17/20 11:45 Temperature Pulse Rate 61 Respiratory 12 Rate Blood Pressure 159/79 O2 Sat by Pulse 98 Oximetry (%) GENERAL: Awake, alert, and fully oriented, in no acute distress. HEAD: Normal with no signs of trauma. EYES: Pupils equal, round and reactive to light, extraocular movements intact, sclera anicteric, conjunctiva clear. No lid lag. LUNGS: Breath sounds equal, clear to auscultation bilaterally. No wheezes, and no crackles. No accessory muscle use. HEART: Regular rate and rhythm, normal S1 and S2 without murmur, rub or gallop. ABDOMEN: Soft, nontender, not distended, normoactive bowel sounds, no guarding, no rebound, no masses. No hepatomegaly or splenomegaly. MUSCULOSKELETAL: Normal range of motion at all joints. No bony deformities or tenderness. No CVA tenderness. UPPER EXTREMITIES: 2+ pulses, warm, well-perfused. No cyanosis. No clubbing. No peripheral edema. RIGHT LOWER EXTREMITY: Surgical dressing c/d/i, ice pack, Hemovac drain serosanguinous drainage, +flex/extend toes, sensory intact NEUROLOGICAL: Cranial nerves II-XII intact. Normal speech. 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 Flynn Manjarrez. Right total knee arthroplastry --POD #0 --perioperative antibiotics per surgery --pain management per surgery --ASA 81mg BID --protonix --bowel regimen --incentive spirometry --Hemovac drain, monitor output Asthma --stable, not on home meds Anemia --stable, monitor h/h Breast cancer --stable Chronic venous insufficiency --stable Glaucoma --continue home eye drop regimen FEN Fluids: LR@125mL/hr Electrolytes: replete as indicated Nutrition: regular diet DVT prophylaxis: OOB, ambulation, SCDs, TEDs, ASA 81mg BID Physical therapy Dispo: continues to require inpatient care. Full code. Visit type - Medication Review Med list reviewed for High Risk Meds patients 65 and older: Yes - Emergency Visit Emergency Visit: No - New Patient This patient is new to me today: Yes Date on this admission: 06/18/20 - Critical Care Critical Care patient: No
[2020-06-17] MEDS ORDERED: LOCK ITEM NR ONE (14:09)
[2020-06-17] MEDS: SENNOSIDES/DOCUSATE COMBO (SENNA PLUS) TABLET (UD) PO SCH (21:40)
[2020-06-17] MEDS: oxyCODONE HCL 5 MG TABLET PO PRN (21:41)
[2020-06-17] MEDS ORDERED: PT OWN MED DRAWER 7, Y5N ONE (21:41)
[2020-06-17] MEDS: ASPIRIN COATED 81 MG TABLET.EC PO SCH (21:41)
[2020-06-17] MEDS: LATANOPROST 0.005% OPHTH SOLN 2.5ML BOTTLE OU SCH (21:42)
[2020-06-17] MEDS ORDERED: TRAVOPROST OU SCH (22:00)
[2020-06-17] MEDS: CEFAZOLIN 2 GM/D5W 2 GM/50 ML ML IVPB SCH (23:35)
[2020-06-18] MEDS: ACETAMINOPHEN 325 MG TABLET (FP) PO SCH ×5 (00:34→19:25)
[2020-06-18] MEDS: LACTATED RINGERS SOLUTION 1,000 ML IV SCH ×2 (07:30→19:19)
[2020-06-18 08:06] LABS: CALCIUM 8.6 mg/dl (8.5-10); POTASSIUM 3.6 mmol/L (3.5-5.1)
[2020-06-18 08:07] LABS: HEMATOCRIT 29.2 % (32.4-45.2); HEMOGLOBIN 9.8 GM/dl (10.7-15.3); MCH 31.3 pg (25.7-33.7); MCHC 33.6 g/dl (32.0-36.0); MEAN PLT VOLUME 8.6 fl (7.5-11.1); PLATELET COUNT 203 K/MM3 (134-434); RBC 3.14 M/mm3 (3.60-5.2); RDW 13.7 % (11.6-15.6)
--- NOTE | 2020-06-18 08:28 | PN ---
Progress Note (short form) - Note Progress Note: Surgery POD#1 right total knee arthroplasty seen and examined on AM rounds. She has been OOB ambulating to bathroom, voiding and tolerating her diet. her pain is contro lled and she denies any CP, SOB, N/V/D, fever or chills. Vital Signs Temp 98.8 F 06/18/20 14:11 Pulse 68 06/18/20 14:11 Resp 18 06/18/20 14:11 BP 128/62 06/18/20 14:11 Pulse Ox 100 06/18/20 14:11 Intake & Output 06/17/20 06/18/20 06/18/20 23:59 11:59 23:59 Intake Total 500 200 200 Output Total 1510 55 Balance -1010 145 200 Intake: IV 100 Oral 400 200 200 Output: Drainage 60 55 Right Knee 60 55 Urine 1450 Void 700 Other: Voiding Method Bedpan Toilet # Unmeasured Voids Void 1 1 Bowel Movement No No CBC, BMP 06/18/20 07:07 06/18/20 07:07 PE: A&Ox3, NAD Unlabored resp on RA Right LE dressing C/D/I, Knee ROM from 0-30 degrees-limited by dressing, hemavac drain in place and draining bloody d/c B/L LE compartments soft, supple and non-tender with +2 DP pulses. Problem List - Problems (1) Status post total right knee replacement Assessment/Plan: 69F s/p RIGHT total knee replacement POD #1. -Pain control: per anaesthesia team. -DVT PPx: -Chemical: ASA 81mg PO BID x 6 weeks. -Mechanical: JAIDEN's, SCD's. -Incentive spirometry q15 min. -PT/OT/Rehab, OOB. -WBAT RLE. - drain empty and measure -f/u AM labs. -Diet as tolerated. -Care per medical hospitalist team. -Discharge planning: home health aid arranged; f/u [facility] [place] [facility] 7-10 days after discharge; call for appointment . -Will follow. Code(s): Z96.651 - PRESENCE OF RIGHT ARTIFICIAL KNEE JOINT
[2020-06-18] MEDS: oxyCODONE HCL 5 MG TABLET PO PRN ×5 (09:00→22:25)
[2020-06-18] MEDS: ASPIRIN COATED 81 MG TABLET.EC PO SCH ×2 (09:13→21:32)
[2020-06-18] MEDS: PANTOPRAZOLE 40 MG TABLET PO SCH (09:15)
[2020-06-18] MEDS: SENNOSIDES/DOCUSATE COMBO (SENNA PLUS) TABLET (UD) PO SCH ×2 (09:15→21:32)
[2020-06-18] MEDS ORDERED: TIMOLOL OU SCH (10:00)
--- NOTE | 2020-06-18 11:57 | OP ---
DATE OF OPERATION: 06/17/2020 PREOPERATIVE DIAGNOSIS: Right knee degenerative joint disease. POSTOPERATIVE DIAGNOSIS: Right knee degenerative joint disease. PROCEDURE: Right total knee replacement. TOURNIQUET PRESSURE: 350 mL. TOURNIQUET TIME: 132. IMPLANTS: [employer]io Triathlon femur 3, tibia 4, polyethylene 9 TS, patella 27 symmetric. ANESTHESIOLOGIST: Jayne Rodriguez MD DRAINS: One time deep Hemovac used. FLUIDS: 900 mL of crystalloid used. The remainder of this dictation will be inserted by [employer]. MD BLANE Goodman/[id number]
--- NOTE | 2020-06-18 12:01 | PN ---
Physical Exam: SUBJECTIVE: Patient seen and examined oob to chair. Observed earlier walking with PT. OBJECTIVE: Vital Signs Period Temp Pulse Resp BP Sys/Cisneros Pulse Ox Last 24 Hr 97.2 F-99.0 F 53-76 12-18 117-165/51-90 96-100 GENERAL: Awake, alert, and fully oriented, in no acute distress. LUNGS: Breath sounds equal, clear to auscultation bilaterally. No wheezes, and no crackles. No accessory muscle use. HEART: Regular rate and rhythm, normal S1 and S2 UPPER EXTREMITIES: 2+ pulses, warm, well-perfused. No cyanosis. No clubbing. No peripheral edema. RIGHT LOWER EXTREMITY: Surgical dressing c/d/i, ice pack, Hemovac drain serosanguinous drainage, +flex/extend toes, sensory intact NEUROLOGICAL: Cranial nerves II-XII intact. Normal speech. Laboratory Results - last 24 hr 06/18/20 06/18/20 07:07 07:07 WBC 5.0 RBC 3.14 L Hgb 9.8 L Hct 29.2 L MCV 93.0 MCH 31.3 MCHC 33.6 RDW 13.7 Plt Count 203 MPV 8.6 Sodium 139 Potassium 3.6 Chloride 103 Carbon Dioxide 26 Anion Gap 10 BUN 16.0 Creatinine 1.0 Est GFR (CKD-EPI)AfAm 66.57 Est GFR (CKD-EPI)NonAf 57.44 Random Glucose 107 H Calcium 8.6 Active Medications Generic Name Dose Route Start Last Admin Trade Name Freq PRN Reason Stop Dose Admin Acetaminophen 650 mg 06/17/20 18:00 06/18/20 00:34 Tylenol - PO 06/20/20 17:59 650 mg Q6H LAURA Administration Al Hydroxide/Mg Hydroxide 30 ml 06/17/20 11:41 Mylanta Oral Suspension - PO Q4H PRN DYSPEPSIA Aspirin 81 mg 06/17/20 22:00 06/18/20 09:13 Ecotrin - PO 81 mg BID LAURA Administration Lactated Ringer's 1,000 mls @ 75 mls/hr 06/17/20 07:30 Lactated Ringers Solution IV ASDIR LAURA Latanoprost 1 drop 06/17/20 22:00 06/17/20 21:42 Xalatan 0.005% Eye Drops - OU 1 drop HS LAURA Administration Magnesium Hydroxide 30 ml 06/17/20 11:41 Milk Of Magnesia - PO PRN PRN CONSTIPATION Non-Formulary Medication 1 ml 06/18/20 10:00 Timolol [Betimol] OU DAILY [facility] Ondansetron HCl 4 mg 06/17/20 11:41 06/17/20 12:05 Zofran Injection IVPUSH 4 mg Q6H PRN Administration NAUSEA Oxycodone HCl 5 mg 06/17/20 07:22 Roxicodone - PO Q3H PRN PAIN LEVEL 4 - 6 Oxycodone HCl 10 mg 06/17/20 07:22 06/18/20 09:00 Roxicodone - PO 10 mg Q3H PRN Administration PAIN LEVEL 7-10 Pantoprazole Sodium 40 mg 06/18/20 10:00 06/18/20 09:15 Protonix - PO 40 mg DAILY LAURA Administration Senna/Docusate Sodium 2 tablet 06/17/20 22:00 06/18/20 09:15 Pericolace - PO 2 tablet BID LAURA Administration Tramadol HCl 50 mg 06/17/20 07:22 Ultram - PO Q3H PRN PAIN LEVEL 1 - 3 Pre op Hgb 11.9 BUN 26 Cr 0.8 Intra op LR 900mL Vanc 1g x 1; Ancef 2g x 1 ASSESSMENT/PLAN: 69 year-old female with a PMH significant for asthma, anemia, breast cancer s/p surgeries x 2, chronic venous insufficiency, glaucoma, and right knee DJD s/p right total knee arthroplasty today with Dr. Flynn Manjarrez. Right total knee arthroplastry --POD #1 --perioperative antibiotics complete --pain well-managed with PO meds --ASA 81mg BID --protonix --bowel regimen --incentive spirometry --Hemovac drain, monitor output Asthma --stable, not on home meds Anemia --h/h stable Breast cancer --stable Chronic venous insufficiency --stable Glaucoma --continue home eye drop regimen FEN Fluids: PO intake adequate Electrolytes: replete as indicated Nutrition: regular diet DVT prophylaxis: OOB, ambulation, SCDs, TEDs, ASA 81mg BID Physical therapy Dispo: continues to require inpatient care. Full code. Visit type - Emergency Visit Emergency Visit: No - New Patient This patient is new to me today: No - Critical Care Critical Care patient: No - Medication Review Med list reviewed for High Risk Meds patients 65 and older: Yes
--- NOTE | 2020-06-18 12:48 | PN ---
Progress Note (short form) - Note Progress Note: POD#1 s/p R TKR under GA with adductor canal block/selective tibial nerve block. Patient doing well, ambulating, pain is controlled. Patient had one short episode of nausea without vomiting overnight. All questions answered.
[2020-06-18] MEDS: CEFAZOLIN 2 GM/D5W 2 GM/50 ML ML IVPB SCH ×2 (19:17→19:20)
[2020-06-18] MEDS: LATANOPROST 0.005% OPHTH SOLN 2.5ML BOTTLE OU SCH (21:32)
[2020-06-19] MEDS: ACETAMINOPHEN 325 MG TABLET (FP) PO SCH ×3 (01:38→13:03)
[2020-06-19] MEDS: oxyCODONE HCL 5 MG TABLET PO PRN ×2 (01:39→04:50)
[2020-06-19 06:51] VITALS: TEMP 98.8
--- NOTE | 2020-06-19 06:57 | PN ---
Progress Note (short form) - Note Progress Note: ORTHOPAEDIC SURGERY POD #2 s/p Rt TKA NO acute events per RN notes. PT notes reviewed. She is OOB and ambulating to bathroom -- voiding spontaneously. Pain controlled well. Tolerating PO diet. Denies n/v/f/c, CP, palpitations, SOB or CHANEY. Last Vital Signs Temp Pulse Resp BP Pulse Ox 98.8 F 65 18 112/57 L 96 06/19/20 06:00 06/19/20 06:00 06/19/20 06:00 06/19/20 06:00 06/19/20 06:00 Drain Trend 06/17/20 06/18/20 06/18/20 06/19/20 22:54 06:00 20:53 06:00 Rt knee 60 55 10 25 PE GEN: A&Ox3, NAD PULM: Unlabored resp on RA LE: rle dressing c/d/i, Knee ROM flexion to 90 degrees. Drain (sanguinous). all compartments soft. 2+ DP bilat Problem List - Problems (1) Status post total right knee replacement Assessment/Plan: 69F POD #2 s/p Right TKA -Pain control: per anaesthesia team. -DVT PPx: -Chemical: ASA 81mg PO BID x 6 weeks. -Mechanical: JAIDEN's, SCD's. -Incentive spirometry q15 min. -PT/OT/Rehab, OOB. -WBAT RLE. -Drain to be removed today after her second PT session by Dr. Manjarrez -f/u AM labs. -Reg diet -Care per medical hospitalist team. -DC planning home today. Health aid arranged; f/u 7-10 days at [facility]; call for appointment . -Above plan discussed with Dr. Flynn Manjarrez and agrees. Code(s): Z96.651 - PRESENCE OF RIGHT ARTIFICIAL KNEE JOINT
[2020-06-19] MEDS: LACTATED RINGERS SOLUTION 1,000 ML IV SCH (07:22)
[2020-06-19 07:43] LABS: HEMATOCRIT 27.3 % (32.4-45.2); HEMOGLOBIN 8.8 GM/dl (10.7-15.3); MCH 29.8 pg (25.7-33.7); MCHC 32.2 g/dl (32.0-36.0); MEAN CELL VOLUME 92.5 fl (80-96); MEAN PLT VOLUME 8.8 fl (7.5-11.1); PLATELET COUNT 189 K/MM3 (134-434); RBC 2.95 M/mm3 (3.60-5.2); RDW 13.7 % (11.6-15.6); WHITE BLOOD COUNT 5.7 K/mm3 (4.0-10.8)
[2020-06-19] MEDS: ASPIRIN COATED 81 MG TABLET.EC PO SCH (09:17)
[2020-06-19] MEDS: SENNOSIDES/DOCUSATE COMBO (SENNA PLUS) TABLET (UD) PO SCH (09:17)
[2020-06-19] MEDS: PANTOPRAZOLE 40 MG TABLET PO SCH (09:18)
--- NOTE | 2020-06-19 12:32 | DS ---
"Physical Exam: SUBJECTIVE: Patient seen and examined OBJECTIVE: Vital Signs Period Temp Pulse Resp BP Sys/Cisneros Pulse Ox Last 24 Hr 98.8 F-99.7 F 65-76 18-18 112-137/48-62 95-100 PHYSICAL EXAM GENERAL: The patient is awake, alert, and fully oriented, in no acute distress. HEAD: Normal with no signs of trauma. EYES: PERRL, extraocular movements intact, sclera anicteric, conjunctiva clear. ENT: Ears normal, nares patent, oropharynx clear without exudates, moist mucous membranes. NECK: Trachea midline, full range of motion, supple. LUNGS: Breath sounds equal, clear to auscultation bilaterally, no wheezes, no crackles, no accessory muscle use. HEART: Regular rate and rhythm, S1, S2 without murmur, rub or gallop. ABDOMEN: Soft, nontender, nondistended, normoactive bowel sounds, no guarding, no rebound, no hepatosplenomegaly, no masses. EXTREMITIES: 2+ pulses, warm, well-perfused, no edema. NEUROLOGICAL: Cranial nerves II through XII grossly intact. Normal speech, gait not observed. PSYCH: Normal mood, normal affect. SKIN: Warm, dry, normal turgor, no rashes or lesions noted. LABS Laboratory Results - last 24 hr 06/19/20 07:02 WBC 5.7 RBC 2.95 L Hgb 8.8 L Hct 27.3 L MCV 92.5 MCH 29.8 MCHC 32.2 RDW 13.7 Plt Count 189 MPV 8.8 HOSPITAL COURSE: Date of Admission:06/17/20 Date of Discharge: 06/19/20 This report was requested by: Claudia Newton | Reference #: [id number] Others' Prescriptions Patient Name: Veronika Felix Date: 1950 Address: [address] [place] [address] Sex: Female Rx Written Rx Dispensed Drug Quantity Days Supply Prescriber Name Payment Method Dispenser 05/07/2020 05/08/2020 tramadol hcl 50 mg tablet 180 30 Flynn Manjarrez) Medicare [facility] #[id number] 03/31/2020 04/27/2020 diazepam 5 mg tablet 60 30 Flynn Manjarrez) Medicare [facility] #[id number] 03/31/2020 04/02/2020 tramadol hcl 50 mg tablet 180 30 Flynn Manjarrez) Medicare [facility] #[id number] 09/06/2019 09/12/2019 oxycodone-acetaminophen 5-325 mg tablet 180 30 Flynn Manjarrez) Medicare [facility] #[id number] 07/30/2019 07/31/2019 oxycodone-acetaminophen 5-325 mg tablet 180 30 Flynn Manjarrez) Medicare [facility] #[id number] Discharge Summary Reason For Visit: UNIL PRIMARY OSTEOARTHRITIS Current Active Problems Status post total right knee replacement (Acute) Condition: Improved - Instructions Diet, Activity, Other Instructions: Dr. Manjarrez Discharge Instructions for Hip Replacement Post Operative Instructions Physical activity Physical Therapist will come to your home for the first 5 days. You will be set up with outpatient PT at your first post-operative visit. Use assistive devices for ambulation at all times. Weight bearing as tolerated on your surgical side. Wound care Leave your surgical dressing in place. Do not change the dressing until seen by your surgeon in the office. No baths or showers. Do not submerge your incision. Do not apply any ointments or lotions to your incision. Please call the office if your dressing is soiled/dirty or is falling off. Apply Graduated Compression Stockings (TEDS) to both lower extremities-remove daily for hygiene ONLY. Diet There are no dietary restrictions. Eat healthy, high-fiber foods. Drink 6 to 8 glasses of liquid each day. This will assist in keeping your bowels are regular. Pain management Any pain prescription medication ordered should be taken as prescribed for moderate to severe pain. Do not take additional Tylenol while taking Percocet. Posterior Hip Precautions: Do not cross the leg you had surgery on over your other leg. (Do not cross your legs.)Use an elevated toilet seat. Do not sit on low chairs or beds. Use purple pillow (abductor) when lying in bed. Take Aspirin 81 mg two times a day for a total of 6 weeks to prevent blood clots. Call Dr. Manjarrez for any of the following: Severe pain not relieved by medication Fever of 101 or higher Excessive bleeding or drainage on dressing Inability to urinate If you experience chest pain or shortness of breath, please seek emergency care immediately. Please call the office at to confirm your post-op appointment for the week following surgery. Referrals: Andre Manjarrez MD [Staff Physician] - Disposition: HOME - Home Medications Comprehensive Discharge Medication List: Ambulatory Orders Timolol [Betimol] 1 ml OU DAILY 10/11/18 Travoprost [Travatan Z] 1 ml OU HS 10/11/18 Tramadol HCl 100 mg PO TID PRN 06/09/20"
[2020-06-19 14:05] VITALS: BP 135/54; PULSE 68
--- NOTE | 2020-06-22 15:34 | PATH ---
Surgical Pathology Report Patient Name: ANAI ZAMORA Med. Rec. #: [id number] /Age/Gender: 1950 (Age: 69) / F Account: [id number] Location: [facility] MED-SURG Taken: 06/17/2020 Received: 06/17/2020 Reported: 06/22/2020 Physicians: Flynn Manjarrez M.D. Specimen(s) Received RIGHT KNEE BONES Clinical History Unilateral primary osteoarthritis right knee Final Diagnosis KNEE BONES, RIGHT, TOTAL KNEE REPLACEMENT: DEGENERATIVE JOINT DISEASE. Electronically Signed Carie Moura M.D. Gross Description Received in formalin labeled "right knee bones," is a 10.5 x 10.0 x 2.0 cm aggregate of multiple dudley-yellow, irregular portions of bone and soft tissue. The tibial plateau measures 7.0 x 4.6 x 1.7 cm. There is a 1.6 cm in greatest dimension area of eburnation present. The remaining articular surfaces are dudley-yellow and focally granular. The underlying trabecular bone is yellow and hard. Block Mason sections are submitted in one cassette, following decalcification. /06/18/2020 [facility]/06/18/2020
== END 2020-06-19 16:50 | disposition home or self-care (01) | DRG 470 ==
LOC: FM/S 06-17 06:18
PROVIDERS: ADMIT Orthopaedic Surgery Adult Reconstructive Orthopaedic Surgery; ATTEND Orthopaedic Surgery Adult Reconstructive Orthopaedic Surgery
PROC: 0SRC0JZ Replacement of Right Knee Joint with Synthetic Substitute, Open Approach (ICD-10-PCS; principal; 2020-06-17 09:00)
DX: M17.11 Unilateral primary osteoarthritis, right knee (principal); J45.909 Unspecified asthma, uncomplicated; D64.9 Anemia, unspecified; Z85.3 Personal history of malignant neoplasm of breast; H40.9 Unspecified glaucoma
CPT/HCPCS: 36415; 73560-TC-RT-FY; 80048; 85027; 88304-TC; 88311-TC; 94760; 97010-GP; 97116-GP; 97163-GP; J0131; U0003